=== PATIENT | female | born 1965 | race Caucasian/White ===

== ENCOUNTER 2021-04-28 09:20 | Observation (INO) | payer BC, MEDICAID, SELFPAY ==
[2021-04-28] VITALS (9 sets, daily range): BP systolic 104–134; BP diastolic 61–75; PULSE 67–98; RESP 16–22; TEMP 35.6–36.8; O2SAT 99–100; BMI 27.3
--- NOTE | ~2021-04-28 | CT_ITS ---
EXAMINATION: CT CHEST WITHOUT CONTRAST CLINICAL INFORMATION: Abnormal chest radiograph COMPARISON: Radiograph from earlier today. TECHNIQUE: Multidetector volumetric CT imaging of the chest was done. Axial MIP volume rendering provided. Sagittal and coronal reformatted images were obtained. This CT examination was performed using dose optimization techniques as appropriate, variously including the following: *Automated exposure control *Adjustment of mA and/or kV according to patient size (this includes techniques or standardized protocols for targeted exams where dose is matched to indication/reason for exam; i.e. extremities or head) *Use of iterative reconstruction technique DLP: 203 mGy-cm FINDINGS: [place] PAN TANK OPERATOR: Cardiac leads. The lungs appear otherwise unremarkable. LUNGS: The central airways are patent. Minimal dependent groundglass opacification bilaterally favoring atelectasis. No consolidation. No pneumothorax. No pulmonary nodule or mass. MEDIASTINUM: Normal heart size. No pericardial effusion. No mediastinal lymphadenopathy. The visualized thyroid gland is unremarkable. . PLEURA: There is no pleural effusion. No pleural mass or thickening. AXILLA: No lymphadenopathy. UPPER ABDOMEN: Unremarkable. OSSEOUS STRUCTURES: No acute or suspicious osseous abnormality. Degenerative changes noted in the spine. DISH. CT/CT chest wo con IMPRESSION: Minimal dependent groundglass opacification in both lower lobes favoring atelectasis. There is no consolidation.
--- NOTE | ~2021-04-28 | CT_ITS ---
EXAMINATION: CT HEAD WITHOUT CONTRAST CLINICAL INFORMATION: Fall, dizziness COMPARISON: None TECHNIQUE: Contiguous axial imaging was performed from the skull base to vertex without intravenous administration of contrast. Additional 2-D coronal and sagittal reformatted images are generated on the CT workstation and uploaded to PACS. This CT examination was performed using dose optimization techniques as appropriate, variously including the following: *Automated exposure control *Adjustment of mA and/or kV according to patient size (this includes techniques or standardized protocols for targeted exams where dose is matched to indication/reason for exam; i.e. extremities or head) *Use of iterative reconstruction technique DLP: 654 mGy-cm FINDINGS: There is no intracranial hemorrhage or hematoma. The ventricles are normal in size and contour. No hydrocephalus or subependymal resorption. There are accentuated cortical sulci bilateral frontal regions representing mild atrophy. There may also be small symmetric chronic subdural hygromas. There is no mass effect or edema or midline shift. The pitts-white matter differentiation appears normal. There is no visible acute territorial infarct or mass lesion. The calvarium appears intact. There is no pneumocephalus or orbital emphysema. The visualized sinuses and middle ears and mastoid air cells show no significant mucosal thickening. There are no air-fluid levels. CT/CT head/brain wo con IMPRESSION: 1. No acute intracranial abnormality. 2. Mild bilateral frontal atrophic changes. 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
--- NOTE | ~2021-04-28 | FL_ITS ---
EXAMINATION: XR LUMBAR PUNCTURE CLINICAL INFORMATION: Weakness and ataxia. CIDP COMPARISON: None TECHNIQUE/FINDINGS: Procedure and risks and benefits including bleeding, infection and headache were discussed with the patient through an petroleum production engineer and informed consent was obtained. Patient was positioned in the prone position. The left back was prepped and draped in the usual sterile fashion. The skin and soft tissues were anesthetized with 1% lidocaine plain. Using fluoroscopic guidance and a 22-gauge spinal needle, access to the CSF at the left L3-L4 interlaminar space was obtained. Opening pressure was 11 cm of water. 8.5 mL of clear CSF fluid was removed and sent for diagnostic studies as requested by the ordering physician. FLUOROSCOPY TIME: 0.3 minutes DOSE AREA PRODUCT: 2 Dempsey per centimeter squared. 2 saved fluoroscopic images. FL/FL guided lumbar puncture LP IMPRESSION: Fluoroscopy-guided lumbar puncture.
--- NOTE | ~2021-04-28 | MR_ITS ---
EXAMINATION: MR BRAIN WITHOUT AND WITH CONTRAST CLINICAL INFORMATION: Weakness. Ataxia. COMPARISON: CT head from 04/28/2021. TECHNIQUE: MRI of the brain was obtained using routine sequences without and following the administration of 7 mL of Gadavist intravenous contrast. FINDINGS: No focal restricted diffusion is demonstrated to suggest acute or subacute cerebral ischemia. No evidence of acute or chronic hemorrhagic products on heme-sensitive imaging. Few scattered periventricular and deep white matter T2 FLAIR hyperintensities, most commonly seen with mild underlying microangiopathy. The ventricles are normal in morphology and size. No abnormal mass effect. No midline shift. Normal appearance of the pituitary gland. Normal positioning of the cerebellar tonsils. Normal arterial and venous vascular flow voids are present. No abnormal contrast enhancement. Normal, homogeneous marrow signal. Mild mucosal thickening of the paranasal sinuses. Small right-sided mastoid effusion. No signal abnormalities within the right-sided mastoid. MR/MR head/brain wo/w con IMPRESSION: 1. No acute intracranial abnormalities. No abnormal intracranial enhancement. 2. Minimal nonspecific white matter changes. 3. Small left-sided mastoid effusion.
--- NOTE | ~2021-04-28 | XR_ITS ---
EXAMINATION: XR CHEST CLINICAL INFORMATION: Cough COMPARISON: None TECHNIQUE: Portable upright AP view of the chest was obtained. FINDINGS: There is questionable groundglass opacity right infrahilar region. The remainder of the lungs appear clear. There is no lobar or segmental airspace consolidation or effusion. The heart is normal in size and the hilar and mediastinal contours are normal. Bony structures show degenerative changes thoracic spine and bilateral shoulder rotator cuff calcific tendinosis. XR/XR chest 1V IMPRESSION: Question of small groundglass opacity right infrahilar region. Lungs otherwise clear.
--- NOTE | 2021-04-28 12:23 | ECG_ITS ---
Test Reason : DIZZINESS Blood Pressure : / mmHG Vent. Rate : 068 BPM Atrial Rate : 068 BPM P-R Int : 146 ms QRS Dur : 086 ms QT Int : 374 ms P-R-T Axes : 029 018 024 degrees QTc Int : 397 ms Poor data quality, interpretation may be adversely affected Sinus rhythm with Premature atrial complexes Low voltage QRS Abnormal ECG No previous ECGs available Referred By: Meeta Mckeon Electronically Signed By:NATHAN ARROYO
--- NOTE | 2021-04-28 12:30 | ED.DIZZY ---
HPI - Dizziness General Chief Complaint: Dizziness Stated Complaint: dizziness, fall Time Seen by Provider: 04/28/21 12:23 Source: patient History of Present Illness HPI Narrative: Patient is a 55-year-old female with a history of bipolar currently on lithium. Presented today with generalized malaise weakness frequent falls it has been ongoing for months. Patient has been followed in [place]. Had workup there which showed possibility of chronic inflammatory disease. Patient also complaining that she had of non-Hodgkin's lymphoma. For which she is placed on tamoxifen. Patient explained that she does not have breast cancer. Patient denies any fever or chills. No coughing or congestion or upper respiratory symptoms. No bloody stool. No focal weakness. No nausea no vomiting. The dizziness is somewhat of a spinning sensation that comes from time to time. Patient also has difficulty walking. Patient claims this is fairly chronic and it has been ongoing for the last month. Seems like it is getting worse. Patient is visiting from [place]. Came here about a month ago. No chest pain. No diaphoresis. No recreational drugs. No new medication. Patient has a history of bipolar and is on lithium. No history of diabetes. No history of hypertension. No history of high cholesterol. No history of smoking. Patient denies any chest pain. No leg swelling. Related Data Allergies Allergy/AdvReac Type Severity Reaction Status Date / Time No Known Allergies Allergy Verified 04/28/21 12:23 Review of Systems Review of Systems: Positive weakness Positive dizziness Positive frequent falls All systems reviewed otherwise negative PMFSH Past Medical History Attestation statement: The following information was validated with the patient. Medical History Bipolar 1 disorder Non-Hodgkin lymphoma in remission Social History Social History Alcohol intake: never Patient Tobacco Use Status: Never used Tobacco Use of substances other than those prescribed or required for medical reasons: No Advance Directives: No Advance Directives Information Provided: No Patient : No Physical Exam Vital Signs: Vital Signs: Last Vital Signs Temp 96.1 F L 04/28/21 11:05 Pulse 67 04/28/21 14:45 Resp 18 04/28/21 14:06 BP 120/66 04/28/21 14:45 Pulse Ox 100 04/28/21 13:20 Body Mass Index 27.3 Appearance: Alert. Oriented X3. No acute distress. Eyes: Pupils equal, round and reactive to light. ENT: Pharynx normal. Neck: Normal inspection. Neck supple. No lymph nodes noted. No crepitus CVS: Normal heart rate and rhythm. Pulses normal. Normal S1 and S2 Respiratory: No respiratory distress. Breath sounds normal. No Wheezing. No rales Abdomen: Soft and nontender. No rigidity. No distention. good BS x4 Skin: Skin warm and dry. Normal skin color. Normal skin turgor. Extremities: No lower extremity edema. Neurovascular intact to all extremities. No Lacerations. No Rash Neuro: Oriented X 3. No motor deficit. Cranial nerve 2-12 grossly intact. Equal strength in upper extremity equal strength in lower extremity. Able to lift up both legs against gravity for greater than 5 seconds. Sensation grossly intact. Finger-nose grossly intact. Rapid alternating movement intact. Patient's reflexes were 2+ at the knees. 2+ at the biceps. Grossly equal. Patient ambulated with a an altered gait. MDM - Dizziness MDM Narrative Medical decision making narrative: Patient's EKG showed a sinus pattern heart rate was [address] within normal limits is no acute ST segment elevation. Patient's troponin is negative. TSH is normal. Patient's CT scan of the head was grossly negative for any acute evidence of bleeding. Patient's lithium levels 1.25. Just slightly above the 1.2 normal range. Unlikely to be the cause of the problem. Patient has negative UA. No evidence for infection. Chest x-ray showed no focal infiltrate. Patient's COVID test was negative. Patient's reflexes were equal in arms and legs. Less likely to be secondary to Guillain-[place]. Will admit patient for further evaluation. Patient's case discussed with the hospitalist team. Lab Data Attestation: I reviewed the patient's lab results. Result diagrams: 04/28/21 12:56 04/28/21 12:56 Labs: Lab Results 04/28/21 04/28/21 04/28/21 Range/Units 12:55 12:55 12:55 WBC (4.8-10.8) X10*3/uL RBC (4.20-5.50) X10*6/uL Hgb (12.0-16.0) g/dl Hct (37-47) % MCV (80-98) fL MCH (27.0-33.0) pg MCHC (31.0-35.0) g/dl RDW (11.0-16.0) % Plt Count (160-400) X10*3/uL MPV (9.4-12.3) fL Immature Gran % (Auto) (0.0-0.4) % Neut % (Auto) (45-73) % Lymph % (Auto) (20-40) % [place] % (Auto) (2-11) % Eos % (Auto) (0-4) % Baso % (Auto) (0-2) % Lymph # (Auto) (1.2-4.9) X10*3/uL [place] # (Auto) (0.1-1.2) X10*3/uL Eos # (Auto) (0.0-0.4) X10*3/uL Baso # (Auto) (0.0-0.2) X10*3/uL Abs Immat Gran (auto) (0.00-0.03) X10*3/uL Absolute Neuts (auto) (2.0-8.3) X10*3/uL Absolute Nucleated RBC (0.0-0.012) X10*3/uL Nucleated RBC % (auto) (0.0-0.2) /100WBC Sodium (135-145) mmol/L Potassium (3.3-5.1) mmol/L Chloride (96-108) mmol/L Carbon Dioxide (22-29) mmol/L Anion Gap (12-20) BUN (9-16) mg/dL Creatinine (0.5-1.4) mg/dL Estim Creat Clear Calc Estimated GFR Random Glucose (60-115) mg/dL Calcium (8.4-10.2) mg/dL Magnesium (1.6-2.6) mg/dL Total Bilirubin (0.0-1.0) mg/dL Direct Bilirubin (0.0-0.5) mg/dL AST (5-31) U/L ALT (0-31) U/L Alkaline Phosphatase (39-117) U/L Troponin I High Sens < 3.5 (<3.5-17.0) ng/L Total Protein (6.5-8.0) g/dL Albumin (3.5-5.0) g/dL TSH (0.32-4.0) uIU/mL Urine Color Urine Appearance Urine pH (5.0-8.0) Ur Specific [place] (1.005-1.025) Urine Protein (NEG-TRACE) MG/DL Urine Glucose (UA) (NEG) MG/DL Urine Ketones (NEG) MG/DL Urine Blood (NEG) Urine Nitrite (NEG) Ur Leukocyte Esterase (NEG) [place] 1.25 H (0.60-1.20) mmol/L Ethyl Alcohol < 10 mg/dL COVID-19 (MARILU) (Negative) COVID-19 Clin Com 04/28/21 04/28/21 04/28/21 Range/Units 12:55 12:56 12:56 WBC 8.8 (4.8-10.8) X10*3/uL RBC 3.49 L (4.20-5.50) X10*6/uL Hgb 9.1 L (12.0-16.0) g/dl Hct 31.0 L (37-47) % MCV 88.8 (80-98) fL MCH 26.1 L (27.0-33.0) pg MCHC 29.4 L (31.0-35.0) g/dl RDW 14.6 (11.0-16.0) % Plt Count 306 (160-400) X10*3/uL MPV 11.0 (9.4-12.3) fL Immature Gran % (Auto) 0.3 (0.0-0.4) % Neut % (Auto) 72.1 (45-73) % Lymph % (Auto) 17.4 L (20-40) % [place] % (Auto) 6.5 (2-11) % Eos % (Auto) 3.4 (0-4) % Baso % (Auto) 0.3 (0-2) % Lymph # (Auto) 1.5 (1.2-4.9) X10*3/uL [place] # (Auto) 0.6 (0.1-1.2) X10*3/uL Eos # (Auto) 0.3 (0.0-0.4) X10*3/uL Baso # (Auto) 0.0 (0.0-0.2) X10*3/uL Abs Immat Gran (auto) 0.03 (0.00-0.03) X10*3/uL Absolute Neuts (auto) 6.3 (2.0-8.3) X10*3/uL Absolute Nucleated RBC 0.000 (0.0-0.012) X10*3/uL Nucleated RBC % (auto) 0.0 (0.0-0.2) /100WBC Sodium 141 (135-145) mmol/L Potassium 4.5 (3.3-5.1) mmol/L Chloride 111 H (96-108) mmol/L Carbon Dioxide 28 (22-29) mmol/L Anion Gap 7 L (12-20) BUN 15 (9-16) mg/dL Creatinine 1.09 (0.5-1.4) mg/dL Estim Creat Clear Calc 55.9 Estimated GFR 53 Random Glucose 117 H (60-115) mg/dL Calcium 9.6 9.6 (8.4-10.2) mg/dL Magnesium 1.6 (1.6-2.6) mg/dL Total Bilirubin 0.4 (0.0-1.0) mg/dL Direct Bilirubin < 0.2 (0.0-0.5) mg/dL AST 9 (5-31) U/L ALT < 6 (0-31) U/L Alkaline Phosphatase 91 (39-117) U/L Troponin I High Sens (<3.5-17.0) ng/L Total Protein 5.9 L (6.5-8.0) g/dL Albumin 3.8 (3.5-5.0) g/dL TSH 2.77 (0.32-4.0) uIU/mL Urine Color Urine Appearance Urine pH (5.0-8.0) Ur Specific [place] (1.005-1.025) Urine Protein (NEG-TRACE) MG/DL Urine Glucose (UA) (NEG) MG/DL Urine Ketones (NEG) MG/DL Urine Blood (NEG) Urine Nitrite (NEG) Ur Leukocyte Esterase (NEG) [place] (0.60-1.20) mmol/L Ethyl Alcohol mg/dL COVID-19 (MARILU) (Negative) COVID-19 Clin Com 04/28/21 04/28/21 Range/Units 14:37 14:37 WBC (4.8-10.8) X10*3/uL RBC (4.20-5.50) X10*6/uL Hgb (12.0-16.0) g/dl Hct (37-47) % MCV (80-98) fL MCH (27.0-33.0) pg MCHC (31.0-35.0) g/dl RDW (11.0-16.0) % Plt Count (160-400) X10*3/uL MPV (9.4-12.3) fL Immature Gran % (Auto) (0.0-0.4) % Neut % (Auto) (45-73) % Lymph % (Auto) (20-40) % [place] % (Auto) (2-11) % Eos % (Auto) (0-4) % Baso % (Auto) (0-2) % Lymph # (Auto) (1.2-4.9) X10*3/uL [place] # (Auto) (0.1-1.2) X10*3/uL Eos # (Auto) (0.0-0.4) X10*3/uL Baso # (Auto) (0.0-0.2) X10*3/uL Abs Immat Gran (auto) (0.00-0.03) X10*3/uL Absolute Neuts (auto) (2.0-8.3) X10*3/uL Absolute Nucleated RBC (0.0-0.012) X10*3/uL Nucleated RBC % (auto) (0.0-0.2) /100WBC Sodium (135-145) mmol/L Potassium (3.3-5.1) mmol/L Chloride (96-108) mmol/L Carbon Dioxide (22-29) mmol/L Anion Gap (12-20) BUN (9-16) mg/dL Creatinine (0.5-1.4) mg/dL Estim Creat Clear Calc Estimated GFR Random Glucose (60-115) mg/dL Calcium (8.4-10.2) mg/dL Magnesium (1.6-2.6) mg/dL Total Bilirubin (0.0-1.0) mg/dL Direct Bilirubin (0.0-0.5) mg/dL AST (5-31) U/L ALT (0-31) U/L Alkaline Phosphatase (39-117) U/L Troponin I High Sens (<3.5-17.0) ng/L Total Protein (6.5-8.0) g/dL Albumin (3.5-5.0) g/dL TSH (0.32-4.0) uIU/mL Urine Color YELLOW Urine Appearance HAZY Urine pH 6.0 (5.0-8.0) Ur Specific [place] 1.020 (1.005-1.025) Urine Protein TRACE (NEG-TRACE) MG/DL Urine Glucose (UA) NEG (NEG) MG/DL Urine Ketones NEG (NEG) MG/DL Urine Blood NEG (NEG) Urine Nitrite NEG (NEG) Ur Leukocyte Esterase TRACE H (NEG) [place] (0.60-1.20) mmol/L Ethyl Alcohol mg/dL COVID-19 (MARILU) Negative (Negative) COVID-19 Clin Com See Note Discharge Plan Discharge Clinical Impression: Dizziness Patient Disposition: Admitted As Inpatient
[2021-04-28 13:05] LABS: MANUAL DIFF FLAG NO
[2021-04-28 13:10] LABS: Basophils Percent Auto 0.3 % (0-2); Eosinophils Absolute Auto 0.3 X10*3/uL (0.0-0.4); Eosinophils Percent Auto 3.4 % (0-4); Hemoglobin 9.1 g/dl (12.0-16.0); Imm Gran Abs Auto 0.03 X10*3/uL (0.00-0.03); Imm Gran Pct Auto 0.3 % (0.0-0.4); Lymphocytes Absolute Auto 1.5 X10*3/uL (1.2-4.9); Lymphocytes Percent Auto 17.4 % (20-40); Mean Corpuscular HGB Conc 29.4 g/dl (31.0-35.0); Mean Corpuscular Hemoglobin 26.1 pg (27.0-33.0); Mean Corpuscular Volume 88.8 fL (80-98); Monocytes Absolute Auto 0.6 X10*3/uL (0.1-1.2); Monocytes Percent Auto 6.5 % (2-11); Neutrophils Absolute Auto 6.3 X10*3/uL (2.0-8.3); Neutrophils Percent Auto 72.1 % (45-73); Platelet Count 306 X10*3/uL (160-400); Red Blood Count 3.49 X10*6/uL (4.20-5.50); Red Cell Distribution Width 14.6 % (11.0-16.0); White Blood Count 8.8 X10*3/uL (4.8-10.8)
[2021-04-28 13:13] LABS: Lithium 1.25 mmol/L (0.60-1.20)
[2021-04-28 13:18] LABS: Ethanol < 10 mg/dL
[2021-04-28 13:19] LABS: Calcium 9.6 mg/dL (8.4-10.2); Magnesium 1.6 mg/dL (1.6-2.6)
[2021-04-28 13:24] LABS: Alanine Aminotransferase < 6 U/L (0-31); Albumin Level 3.8 g/dL (3.5-5.0); Alkaline Phosphatase 91 U/L (39-117); Anion Gap 7 (12-20); Aspartate Amino Transferase 9 U/L (5-31); Bilirubin Direct < 0.2 mg/dL (0.0-0.5); Bilirubin Total 0.4 mg/dL (0.0-1.0); Blood Urea Nitrogen 15 mg/dL (9-16); Calcium 9.6 mg/dL (8.4-10.2); Carbon Dioxide 28 mmol/L (22-29); Chloride 111 mmol/L (96-108); Creatinine Clr Calc Pharmacy 55.9; Estimated Glomerular Filt Rate 53; Glucose Random 117 mg/dL (60-115); Potassium 4.5 mmol/L (3.3-5.1); Sodium 141 mmol/L (135-145); Total Protein 5.9 g/dL (6.5-8.0)
[2021-04-28] MEDS: Meclizine HCl 25 MG TABLET PO (13:24)
[2021-04-28] MEDS: 0.9 % Sodium Chloride 1,000 ML 999 ML IV (13:24)
[2021-04-28 13:25] LABS: Troponin-I High Sensitivity < 3.5 ng/L (<3.5-17.0)
[2021-04-28 13:40] LABS: TSH reflex Free T4 2.77 uIU/mL (0.32-4.0)
[2021-04-28 15:09] LABS: Appearance Urine HAZY; Color Urine YELLOW; Glucose Urine UA NEG (NEG); Leukocyte Esterase Urine TRACE (NEG); Nitrite Urine NEG (NEG); UACC Culture Trigger YES; Urine Blood NEG (NEG); Urine Ketones NEG (NEG); Urine Protein TRACE MG/DL (NEG-TRACE)
[2021-04-28 15:15] LABS: COVID-19 Test Negative (Negative); IDNOW Serial# 9DD0AD1C
[2021-04-28 15:48] LABS: Bacteria Urine 1+ /LPF; RBC Urine 0 /HPF (0); Squamous Epithelial Cell Urine 3+ /LPF; WBC Urine 0-2 /HPF (0-4)
--- NOTE | 2021-04-28 16:52 | P.HPHOSP_ITS ---
History of Present Illness Date of Service: 04/28/21 <Heidi Larson NP - Last Filed: 04/28/21 17:29> Chief Complaint: Weakness <Heidi Larson NP - Last Filed: 04/28/21 17:29> 55 year old women visiting from [place] presents with weakness and falls. She reported that 2 months ago she was diagnosed with chronic inflammatory demyelinating polyneuropathy about 2 months ago. Just prior to that she had been in remission for her non hodgkins lymphoma.She was diagnosed 2 years ago and underwent chemotherapy and radiation.Over the last week she had weakness, falls and unsteady gait. She denied loss of consciousness, chest pain, shortness of breath, nausea, vomiting, diarrhea, loss of bowel or bladder function. Labs are not impressive but she does have some anemia with hemoglobin of 9.1 and hematocrit of 31.0. Chest x-ray showing some ground-glass atelectasis, chest CTA pending. Vital signs are stable. She received a dose of meclizine and 1 L of IV fluid in the ER she will be admitted to observation for falls and dizziness. <Heidi Larson NP - Last Filed: 04/28/21 17:29> Review of Systems Review of Systems: Denies any recent fever chills or decrease in appetite respiratory denies any shortness of breath coverage production cardiovascular denies chest pain gastrointestinal denies any dysphagia abdominal pain nausea vomiting or diarrhea genitourinary denies any dysuria frequency or hematuria musculoskeletal See above neuropsych see above all other systems reviewed are negative <Heidi Larson NP - Last Filed: 04/28/21 17:29> [facility] Medical History: Medical History (Updated 04/29/21 @ 12:41 by Gomez Olivier MD) Adrenal insufficiency Bipolar 1 disorder Chronic inflammatory demyelinating polyneuritis Non-Hodgkin lymphoma in remission <Heidi Larson NP - Last Filed: 04/28/21 17:29> Pertinent family history: Mother had chronic inflammatory demyelinating polyneuritis <Heidi Larson NP - Last Filed: 04/28/21 17:29> Surgical History: Surgical History H/O cardiac catheterization <NORMA Lopez Last Filed: 04/28/21 17:29> Social History: Social History Alcohol intake: never Patient Tobacco Use Status: Never used Tobacco Use of substances other than those prescribed or required for medical reasons: No Advance Directives: Yes (HCP) Advance Directives on File: Yes Advance Directives Date on File: 04/28/21 Patient : No service: No Current occupational status: employed <Heidi Larson NP - Last Filed: 04/28/21 17:29> Meds Allergies/Adverse reactions: Allergies Allergy/AdvReac Type Severity Reaction Status Date / Time No Known Allergies Allergy Verified 04/28/21 12:23 <Heidi Larson NP - Last Filed: 04/28/21 17:29> Active Medications: Current Medications Generic Name Dose Route Start Last Admin Trade Name Freq PRN Reason Stop Dose Admin Pharmacy Consult 1 each 04/28/21 14:32 Consult Rx Perform Med Rec MISCELLANE ONCE PRN Consult order <Heidi Larson NP - Last Filed: 04/28/21 17:29> Home medications: Home Medications Medication Instructions Recorded Confirmed Last Taken Type aspirin 81 mg tablet,delayed 81 mg PO DAILY 04/28/21 04/28/21 Unknown History release cyanocobalamin (vitamin B-12) 100 100 mcg PO DAILY 04/28/21 04/28/21 Unknown History mcg tablet (Vitamin B-12) insulin glargine 100 unit/mL 5 unit SUBCUT BEDTIME PRN 04/28/21 04/28/21 Unknown History subcutaneous solution (Lantus U-100 Insulin) lithium carbonate 300 mg capsule 300 mg PO BID 04/28/21 04/28/21 Unknown History lorazepam 2 mg tablet 2 mg PO BID PRN 04/28/21 04/28/21 Unknown History meclizine 25 mg tablet 25 mg PO DAILY 04/28/21 04/28/21 Unknown History metformin 1,000 mg tablet 1,000 mg PO BID 04/28/21 04/28/21 Unknown History nortriptyline 50 mg capsule 100 mg PO BEDTIME 04/28/21 04/28/21 Unknown History omeprazole 20 mg capsule,delayed 20 mg PO DAILY 04/28/21 04/28/21 Unknown History release sennosides 25 mg tablet 25 mg PO BEDTIME PRN 04/28/21 04/28/21 Unknown History simvastatin 40 mg tablet 40 mg PO BEDTIME 04/28/21 04/28/21 Unknown History temazepam 30 mg capsule 30 mg PO BEDTIME PRN 04/28/21 04/28/21 Unknown History <Heidi Larson NP - Last Filed: 04/28/21 17:29> Physical Exam Vital Signs and Narrative: Vital Signs: Last Vital Signs Temp 98.3 F 04/28/21 15:53 Pulse 84 04/28/21 15:53 Resp 20 04/28/21 15:53 BP 130/73 04/28/21 15:53 Pulse Ox 99 04/28/21 15:53 Body Mass Index 27.3 <Heidi Larson NP - Last Filed: 04/28/21 17:29> Appearing in no acute distress head is normocephalic atraumatic eyes pupils are PERRLA sclera is anicteric mouth throat mucous membranes are intact and moist neck is supple no lymphadenopathy, no JVD noted lung sounds are clear to auscultation heart regular rate rhythm, clear S1, S2 positive bowel sounds, abdomen is soft, nontender neuro patient is alert x3, no focal deficits <Heidi Larson NP - Last Filed: 04/28/21 17:29> Results Labs CBC and Chem 7: : 04/29/21 05:19 04/29/21 05:19 <Heidi Larson NP - Last Filed: 04/28/21 17:29> Labs: Laboratory Results - last 24 hr 04/28/21 04/28/21 04/28/21 12:55 12:55 12:55 MCV MCH MCHC RDW Plt Count MPV Immature Gran % (Auto) Neut % (Auto) Lymph % (Auto) [place] % (Auto) Eos % (Auto) Baso % (Auto) Lymph # (Auto) [place] # (Auto) Eos # (Auto) Baso # (Auto) Abs Immat Gran (auto) Absolute Neuts (auto) Absolute Nucleated RBC Nucleated RBC % (auto) Anion Gap Estim Creat Clear Calc Estimated GFR Random Glucose Calcium Magnesium Total Bilirubin Direct Bilirubin AST ALT Alkaline Phosphatase Troponin I High Sens < 3.5 Total Protein Albumin TSH Urine Color Urine Appearance Urine pH Ur Specific [place] Urine Protein Urine Glucose (UA) Urine Ketones Urine Blood Urine Nitrite Ur Leukocyte Esterase Urine RBC Urine WBC Ur Squamous Epith Cells Urine Bacteria [place] 1.25 H Ethyl Alcohol < 10 COVID-19 (MARILU) COVID-19 Clin Com 04/28/21 04/28/21 04/28/21 12:55 12:56 12:56 MCV 88.8 MCH 26.1 L MCHC 29.4 L RDW 14.6 Plt Count 306 MPV 11.0 Immature Gran % (Auto) 0.3 Neut % (Auto) 72.1 Lymph % (Auto) 17.4 L [place] % (Auto) 6.5 Eos % (Auto) 3.4 Baso % (Auto) 0.3 Lymph # (Auto) 1.5 [place] # (Auto) 0.6 Eos # (Auto) 0.3 Baso # (Auto) 0.0 Abs Immat Gran (auto) 0.03 Absolute Neuts (auto) 6.3 Absolute Nucleated RBC 0.000 Nucleated RBC % (auto) 0.0 Anion Gap 7 L Estim Creat Clear Calc 55.9 Estimated GFR 53 Random Glucose 117 H Calcium 9.6 9.6 Magnesium 1.6 Total Bilirubin 0.4 Direct Bilirubin < 0.2 AST 9 ALT < 6 Alkaline Phosphatase 91 Troponin I High Sens Total Protein 5.9 L Albumin 3.8 TSH 2.77 Urine Color Urine Appearance Urine pH Ur Specific [place] Urine Protein Urine Glucose (UA) Urine Ketones Urine Blood Urine Nitrite Ur Leukocyte Esterase Urine RBC Urine WBC Ur Squamous Epith Cells Urine Bacteria [place] Ethyl Alcohol COVID-19 (MARILU) COVID-19 Clin Com 04/28/21 04/28/21 14:37 14:37 MCV MCH MCHC RDW Plt Count MPV Immature Gran % (Auto) Neut % (Auto) Lymph % (Auto) [place] % (Auto) Eos % (Auto) Baso % (Auto) Lymph # (Auto) [place] # (Auto) Eos # (Auto) Baso # (Auto) Abs Immat Gran (auto) Absolute Neuts (auto) Absolute Nucleated RBC Nucleated RBC % (auto) Anion Gap Estim Creat Clear Calc Estimated GFR Random Glucose Calcium Magnesium Total Bilirubin Direct Bilirubin AST ALT Alkaline Phosphatase Troponin I High Sens Total Protein Albumin TSH Urine Color YELLOW Urine Appearance HAZY Urine pH 6.0 Ur Specific [place] 1.020 Urine Protein TRACE Urine Glucose (UA) NEG Urine Ketones NEG Urine Blood NEG Urine Nitrite NEG Ur Leukocyte Esterase TRACE H Urine RBC 0 Urine WBC 0-2 Ur Squamous Epith Cells 3+ Urine Bacteria 1+ [place] Ethyl Alcohol COVID-19 (MARILU) Negative COVID-19 Clin Com See Note <Heidi Larson NP - Last Filed: 04/28/21 17:29> Imaging Radiologist's Impressions: Impressions Chest X-Ray 04/28/21 12:23 IMPRESSION: Question of small groundglass opacity right infrahilar region. Lungs otherwise clear. Head CT 04/28/21 12:23 IMPRESSION: 1. No acute intracranial abnormality. 2. Mild bilateral frontal atrophic changes. 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 <Heidi Larson NP - Last Filed: 04/28/21 17:29> Assessment and Plan (1) Dizziness: Status: Acute <Heidi Larson NP - Last Filed: 04/28/21 17:29> 55-year-old Qatari-speaking woman admitted with weakness and falls. 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 She reported over the last couple of days she has had multiple falls and has felt general malaise. Weakness and falls . Unknown if related to diagnosis of CIDP Will obtain MRI brain with and without contrast. At some point may consider MRI of the spine for further diagnosis of CIDP Neurology consultation Fall precautions Check ESR, CRP Abnormal chest x-ray Obtain chest CT for further evaluation Diabetes mellitus Sliding scale, ADA diet Normocytic anemia Follow CBC Hyperlipidemia Continue statin Mental health [place] level mildly elevated Continue home medications <Heidi Larson NP - Last Filed: 04/28/21 17:29> 55-year-old Qatari-speaking woman admitted with weakness and falls. 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 She reported over the last couple of days she has had multiple falls and has felt general malaise. Weakness and falls . Unknown if related to diagnosis of CIDP Will obtain MRI brain with and without contrast. At some point may consider MRI of the spine for further diagnosis of CIDP Neurology consultation Fall precautions Check ESR, CRP Abnormal chest x-ray Obtain chest CT for further evaluation Diabetes mellitus Sliding scale, ADA diet Normocytic anemia Follow CBC Hyperlipidemia Continue statin Mental health [place] level mildly elevated Continue home medications Patient seen/examined, diagnostic finding, physical exam finding discussed and assessment and plan discussed with midlevel and I agree with the above. <Silverio Willis MD - Last Filed: 04/29/21 15:14> Quality Stroke Does the patient have a stroke diagnosis?: No <Heidi Larson NP - Last Filed: 04/28/21 17:29> VTE Prior VTE?: No <Heidi Larson NP - Last Filed: 04/28/21 17:29> VTE Risk Level:: Medical - moderate - high <Heidi Larson NP - Last Filed: 04/28/21 17:29> VTE Device Contraindication: Treatment Not Indicated <Heidi Larson NP - Last Filed: 04/28/21 17:29> VTE Drug Contraindication: N/A - Med Ordered <Heidi Larson NP - Last Filed: 04/28/21 17:29>
[2021-04-28 17:59] LABS: C Reactive Protein 0.04 mg/dL (< or = 0.50)
[2021-04-28 19:09] LABS: Erythrocyte Sedimentation Rate 14 MM/HR (0-20)
--- NOTE | 2021-04-28 20:50 | MHC.CM.PN ---
Addendum entered by Court Eisenberg 04/28/21 21:30: Pt lives in [place]. Addendum entered by Court Eisenberg 04/28/21 21:29: Pt is Lao speaking only. newspaper stuffer used for interview. Original Note: CM met with admitted patient, with room assignment pending. Placed to observation. Silverio reviewed and signed. Pt lives in . Visiting niece. Diagnosed with Chronic Inflammatory Demyelinating Polyneuritis. Unsteady and falls. Had MRI. Will see neurology. Pt plans to f/u with neurology specialist in [place] and then return to [place]. 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 Pt has [facility] PPO. Pt may need PCP referral if visit becomes prolonged. Has PCP in [place]. Pt is in remission from lymphoma. Pt uses no DME and has no services in [place]. Has HCP in [place]. Reviewed HCP. Pt agreeable. Will complete with brother/HCP Ramsey Barreto ([phone]) and niece/alternate Yulissa Barreto Copies given and uploaded into [employer] and [facility] [place] [employer]. D/C plan is home to niece's home. Transportation home by family. CM to follow for d/c needs.
[2021-04-28] MEDS: Enoxaparin Sodium 40 MG/0.4 ML SYRINGE SUBCUT (21:37)
[2021-04-28 21:51] LABS: Glucose, Whole Blood 133 mg/dL (60-115)
[2021-04-29] VITALS (7 sets, daily range): BP systolic 102–122; BP diastolic 57–68; PULSE 68–81; RESP 16–20; TEMP 36.3–36.4; O2SAT 98–99
[2021-04-29] MEDS: 0.9 % Sodium Chloride Flush 3 ML SYRINGE IVFLUSH ×4 (01:00→20:57)
[2021-04-29 05:51] LABS: MANUAL DIFF FLAG NO
[2021-04-29 05:53] LABS: Basophils Percent Auto 0.2 % (0-2); Eosinophils Absolute Auto 0.4 X10*3/uL (0.0-0.4); Eosinophils Percent Auto 4.4 % (0-4); Hematocrit 28.5 % (37-47); Hemoglobin 8.6 g/dl (12.0-16.0); Imm Gran Abs Auto 0.02 X10*3/uL (0.00-0.03); Imm Gran Pct Auto 0.2 % (0.0-0.4); Lymphocytes Absolute Auto 2.3 X10*3/uL (1.2-4.9); Lymphocytes Percent Auto 25.5 % (20-40); Mean Corpuscular HGB Conc 30.2 g/dl (31.0-35.0); Mean Corpuscular Hemoglobin 26.6 pg (27.0-33.0); Mean Corpuscular Volume 88.2 fL (80-98); Mean Platelet Volume 11.3 fL (9.4-12.3); Monocytes Absolute Auto 0.7 X10*3/uL (0.1-1.2); Monocytes Percent Auto 7.6 % (2-11); Neutrophils Absolute Auto 5.7 X10*3/uL (2.0-8.3); Neutrophils Percent Auto 62.1 % (45-73); Platelet Count 282 X10*3/uL (160-400); Red Blood Count 3.23 X10*6/uL (4.20-5.50); Red Cell Distribution Width 14.6 % (11.0-16.0); White Blood Count 9.1 X10*3/uL (4.8-10.8)
[2021-04-29 06:24] LABS: Anion Gap 12 (12-20); Blood Urea Nitrogen 12 mg/dL (9-16); Calcium 9.1 mg/dL (8.4-10.2); Carbon Dioxide 24 mmol/L (22-29); Chloride 112 mmol/L (96-108); Cholesterol 119 mg/dL; Creatinine Clr Calc Pharmacy 62.2; Estimated Glomerular Filt Rate 59; Glucose Random 93 mg/dL (60-115); HDL Cholesterol 44 mg/dL; LDL Cholesterol Calculated 53 mg/dl; Potassium 4.5 mmol/L (3.3-5.1); Sodium 143 mmol/L (135-145); Triglycerides 110 mg/dL
[2021-04-29] MEDS: Omeprazole 20 MG CAPSULE.DR PO (06:42)
[2021-04-29 07:55] LABS: Glucose, Whole Blood 71 mg/dL (60-115)
[2021-04-29] MEDS: Aspirin Enteric Coated 81 MG TABLET.DR PO (08:41)
[2021-04-29] MEDS: Lithium Carbonate 300 MG CAPSULE PO ×2 (08:41→20:57)
[2021-04-29] MEDS: Meclizine HCl 25 MG TABLET PO (08:41)
[2021-04-29 11:49] LABS: Glucose, Whole Blood 87 mg/dL (60-115)
--- NOTE | 2021-04-29 12:17 | P.PNIM_ITS ---
Progress Note: A&P (1) Dizziness: Status: Acute Assessment and Plan: 55-year-old Japanese-speaking woman admitted with weakness and falls.? 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 She reported over the last couple of days she has had multiple falls and has felt general malaise. She lives in [place]. Weakness and falls .? Unknown if related to diagnosis of CIDP vs neuropathy MRI brain negative for acute abnormality Neurology following Fall precautions Check ESR, CRP LP She will [place] to have further work up neurologically Diabetes mellitus Sliding scale, ADA diet Normocytic anemia Follow CBC Hyperlipidemia Continue statin Mental health [place] level mildly elevated Continue home medications Attending Dr. Reynolds Subjective Subjective Date of Service: 04/29/21 Review of Systems Follow up weakness and falls still weak, poor appetite no chest pain, sob He has some nausea and ocassional diarrhea Physical Exam Vital Signs: Vital Signs: Last Vital Signs Temp 97.5 F 04/29/21 08:00 Pulse 81 04/29/21 09:25 Resp 20 04/29/21 08:00 BP 102/57 L 04/29/21 09:25 Pulse Ox 98 04/29/21 09:25 Body Mass Index 27.3 Appearing in no acute distress lung sounds are clear to auscultation heart regular rate rhythm, clear S1, S2 positive bowel sounds, abdomen is soft, nontender neuro patient is alert x3, no focal deficits Objective Data Current Medications Generic Name Dose Route Start Last Admin Trade Name Freq PRN Reason Stop Dose Admin Acetaminophen 650 mg 04/28/21 17:30 Acetaminophen 325 Mg Tablet PO Q6H PRN Pain, Mild (Pain Scale 1-3) Aspirin 81 mg 04/29/21 09:00 04/29/21 08:41 Aspirin Enteric Coated 81 Mg Tablet. PO 81 mg DAILY AURE Administration Atorvastatin Calcium 20 mg 04/28/21 21:00 04/28/21 22:25 Atorvastatin Calcium 20 Mg Tablet PO Not Given BEDTIME AURE Cyanocobalamin 100 mcg 04/29/21 09:00 04/29/21 08:41 Cyanocobalamin (Vitamin B-12) 100 Mcg Tablet PO Not Given DAILY AURE Dextrose 25 gm 04/28/21 17:29 Dextrose 50 % 25 Gm/50 Ml Vial IVPUSH Q15M PRN per Hypoglycemia Standing Ord. Protocol Enoxaparin Sodium 40 mg 04/28/21 20:00 04/28/21 21:37 Enoxaparin Sodium 40 Mg/0.4 Ml Syringe SUBCUT 40 mg Q24H AURE Administration Glucose 15 gm 04/28/21 17:29 Glucose Gel 15 Gm Gel..Gram. PO Q15M PRN per Hypoglycemia Standing Ord. Protocol Insulin Glargine 5 unit 04/28/21 17:40 Insulin Glargine,Hum.Rec.Anlog 100 Unit/Ml 10 Ml Vial SUBCUT BEDTIME PRN Hyperglycemia Insulin Human Lispro 0 unit 04/28/21 21:00 04/29/21 08:32 Insulin Lispro 100 Unit/Ml 3 Ml Vial SUBCUT Not Given QIDACHS [facility] Protocol [place] Carbonate 300 mg 04/28/21 21:00 04/29/21 08:41 [place] Carbonate 300 Mg Capsule PO 300 mg BID AURE Administration Lorazepam 2 mg 04/28/21 17:33 Lorazepam 1 Mg Tablet PO BID PRN Anxiety Meclizine HCl 25 mg 04/29/21 09:00 04/29/21 08:41 Meclizine Hcl 25 Mg Tablet PO 25 mg DAILY AURE Administration Nortriptyline HCl 100 mg 04/28/21 21:00 04/28/21 22:16 Nortriptyline Hcl 25 Mg Capsule PO Not Given BEDTIME AURE Omeprazole 20 mg 04/29/21 06:30 04/29/21 06:42 Omeprazole 20 Mg Capsule.Dr PO 20 mg DAILY@0630 AURE Administration Ondansetron HCl 4 mg 04/28/21 17:30 Ondansetron Hcl 4 Mg/2 Ml Vial IVPUSH Q8H PRN Nausea and Vomiting Pharmacy Consult 1 each 04/28/21 14:32 Consult Rx Perform Med Rec MISCELLANE ONCE PRN Consult order Senna 17.2 mg 04/28/21 17:44 Sennosides 8.6 Mg Tablet PO BEDTIME PRN Constipation Sodium Chloride 3 ml 04/29/21 00:00 04/29/21 08:41 0.9 % Sodium Chloride Flush 3 Ml Syringe IVFLUSH 3 ml QSHIFT AURE Administration Temazepam 30 mg 04/28/21 17:39 Temazepam 15 Mg Capsule PO BEDTIME PRN Insomnia Labs CBC & Chem 7: 04/29/21 05:19 04/29/21 05:19 Labs: Laboratory Results - last 24 hr 04/28/21 04/28/21 04/28/21 12:55 12:55 12:55 MCV MCH MCHC RDW Plt Count MPV Immature Gran % (Auto) Neut % (Auto) Lymph % (Auto) [place] % (Auto) Eos % (Auto) Baso % (Auto) Lymph # (Auto) [place] # (Auto) Eos # (Auto) Baso # (Auto) Abs Immat Gran (auto) Absolute Neuts (auto) Absolute Nucleated RBC Nucleated RBC % (auto) ESR Anion Gap Estim Creat Clear Calc Estimated GFR POC Glucose Random Glucose Calcium Magnesium Total Bilirubin Direct Bilirubin AST ALT Alkaline Phosphatase Troponin I High Sens < 3.5 C-Reactive Protein Total Protein Albumin Triglycerides Cholesterol LDL Cholesterol, Calc HDL Cholesterol TSH Urine Color Urine Appearance Urine pH Ur Specific [place] Urine Protein Urine Glucose (UA) Urine Ketones Urine Blood Urine Nitrite Ur Leukocyte Esterase Urine RBC Urine WBC Ur Squamous Epith Cells Urine Bacteria [place] 1.25 H Ethyl Alcohol < 10 COVID-19 (MARILU) COVID-19 Clin Com 04/28/21 04/28/21 04/28/21 12:55 12:56 12:56 MCV 88.8 MCH 26.1 L MCHC 29.4 L RDW 14.6 Plt Count 306 MPV 11.0 Immature Gran % (Auto) 0.3 Neut % (Auto) 72.1 Lymph % (Auto) 17.4 L [place] % (Auto) 6.5 Eos % (Auto) 3.4 Baso % (Auto) 0.3 Lymph # (Auto) 1.5 [place] # (Auto) 0.6 Eos # (Auto) 0.3 Baso # (Auto) 0.0 Abs Immat Gran (auto) 0.03 Absolute Neuts (auto) 6.3 Absolute Nucleated RBC 0.000 Nucleated RBC % (auto) 0.0 ESR Anion Gap 7 L Estim Creat Clear Calc 55.9 Estimated GFR 53 POC Glucose Random Glucose 117 H Calcium 9.6 9.6 Magnesium 1.6 Total Bilirubin 0.4 Direct Bilirubin < 0.2 AST 9 ALT < 6 Alkaline Phosphatase 91 Troponin I High Sens C-Reactive Protein 0.04 Total Protein 5.9 L Albumin 3.8 Triglycerides Cholesterol LDL Cholesterol, Calc HDL Cholesterol TSH 2.77 Urine Color Urine Appearance Urine pH Ur Specific [place] Urine Protein Urine Glucose (UA) Urine Ketones Urine Blood Urine Nitrite Ur Leukocyte Esterase Urine RBC Urine WBC Ur Squamous Epith Cells Urine Bacteria [place] Ethyl Alcohol COVID-19 (MARILU) COVID-19 Clin Com 04/28/21 04/28/21 04/28/21 12:56 14:37 14:37 MCV MCH MCHC RDW Plt Count MPV Immature Gran % (Auto) Neut % (Auto) Lymph % (Auto) [place] % (Auto) Eos % (Auto) Baso % (Auto) Lymph # (Auto) [place] # (Auto) Eos # (Auto) Baso # (Auto) Abs Immat Gran (auto) Absolute Neuts (auto) Absolute Nucleated RBC Nucleated RBC % (auto) ESR 14 Anion Gap Estim Creat Clear Calc Estimated GFR POC Glucose Random Glucose Calcium Magnesium Total Bilirubin Direct Bilirubin AST ALT Alkaline Phosphatase Troponin I High Sens C-Reactive Protein Total Protein Albumin Triglycerides Cholesterol LDL Cholesterol, Calc HDL Cholesterol TSH Urine Color YELLOW Urine Appearance HAZY Urine pH 6.0 Ur Specific [place] 1.020 Urine Protein TRACE Urine Glucose (UA) NEG Urine Ketones NEG Urine Blood NEG Urine Nitrite NEG Ur Leukocyte Esterase TRACE H Urine RBC 0 Urine WBC 0-2 Ur Squamous Epith Cells 3+ Urine Bacteria 1+ [place] Ethyl Alcohol COVID-19 (MARILU) Negative COVID-19 Modernizing [facility] Com See Note 04/28/21 04/29/21 04/29/21 21:36 05:19 05:19 MCV 88.2 MCH 26.6 L MCHC 30.2 L RDW 14.6 Plt Count 282 MPV 11.3 Immature Gran % (Auto) 0.2 Neut % (Auto) 62.1 Lymph % (Auto) 25.5 [place] % (Auto) 7.6 Eos % (Auto) 4.4 H Baso % (Auto) 0.2 Lymph # (Auto) 2.3 [place] # (Auto) 0.7 Eos # (Auto) 0.4 Baso # (Auto) 0.0 Abs Immat Gran (auto) 0.02 Absolute Neuts (auto) 5.7 Absolute Nucleated RBC 0.000 Nucleated RBC % (auto) 0.0 ESR Anion Gap 12 Estim Creat Clear Calc 62.2 Estimated GFR 59 POC Glucose 133 H Random Glucose 93 Calcium 9.1 Magnesium Total Bilirubin Direct Bilirubin AST ALT Alkaline Phosphatase Troponin I High Sens C-Reactive Protein Total Protein Albumin Triglycerides 110 Cholesterol 119 LDL Cholesterol, Calc 53 HDL Cholesterol 44 TSH Urine Color Urine Appearance Urine pH Ur Specific [place] Urine Protein Urine Glucose (UA) Urine Ketones Urine Blood Urine Nitrite Ur Leukocyte Esterase Urine RBC Urine WBC Ur Squamous Epith Cells Urine Bacteria [place] Ethyl Alcohol COVID-19 (MARILU) COVID-19 Clin Com 04/29/21 04/29/21 07:33 11:35 MCV MCH MCHC RDW Plt Count MPV Immature Gran % (Auto) Neut % (Auto) Lymph % (Auto) [place] % (Auto) Eos % (Auto) Baso % (Auto) Lymph # (Auto) [place] # (Auto) Eos # (Auto) Baso # (Auto) Abs Immat Gran (auto) Absolute Neuts (auto) Absolute Nucleated RBC Nucleated RBC % (auto) ESR Anion Gap Estim Creat Clear Calc Estimated GFR POC Glucose 71 87 Random Glucose Calcium Magnesium Total Bilirubin Direct Bilirubin AST ALT Alkaline Phosphatase Troponin I High Sens C-Reactive Protein Total Protein Albumin Triglycerides Cholesterol LDL Cholesterol, Calc HDL Cholesterol TSH Urine Color Urine Appearance Urine pH Ur Specific [place] Urine Protein Urine Glucose (UA) Urine Ketones Urine Blood Urine Nitrite Ur Leukocyte Esterase Urine RBC Urine WBC Ur Squamous Epith Cells Urine Bacteria [place] Ethyl Alcohol COVID-19 (MARILU) COVID-19 Clin Com Quality Stroke Does the patient have a stroke diagnosis?: No VTE Prior VTE?: No VTE Risk Level:: Medical - moderate - high VTE Device Contraindication: Treatment Not Indicated VTE Drug Contraindication: N/A - Med Ordered
--- NOTE | 2021-04-29 12:38 | PM.NEUROCN ---
History of Present Illness Data of Consult Service Date: 04/29/21 Primary Care Provider: Unknown Physician HPI Reason for consult: Difficulty walking 55 years old woman originally from [place] who came here few days ago. She said that she had previous history of diabetes and she was fine with control diabetes until about 3-4 months ago when she developed difficulty walking and falling. She saw some physicians in [place] but no definitive diagnosis was made but it was suggested that she might have CIDP. She did not have any particular testing for that. She came here and was noted to be falling and unsteady and was brought to hospital. There was no loss of bowel bladder function. There was no speech or language difficulty or upper extremity symptoms. Review of Systems Review of Systems: No cold or flu-like symptom now or around the time when her symptoms started. [facility] Past Medical History Medical History (Updated 04/29/21 @ 12:41 by Gomez Olivier MD) Adrenal insufficiency Bipolar 1 disorder Chronic inflammatory demyelinating polyneuritis Non-Hodgkin lymphoma in remission Surgical History Surgical History H/O cardiac catheterization Social History Social History Alcohol intake: never Patient Tobacco Use Status: Never used Tobacco Use of substances other than those prescribed or required for medical reasons: No Advance Directives: Yes (HCP) Advance Directives on File: Yes Advance Directives Date on File: 04/28/21 Patient : No service: No Current occupational status: employed Meds Allergies Allergy/AdvReac Type Severity Reaction Status Date / Time No Known Allergies Allergy Verified 04/28/21 12:23 Active Medications: Current Medications Generic Name Dose Route Start Last Admin Trade Name Freq PRN Reason Stop Dose Admin Acetaminophen 650 mg 04/28/21 17:30 Acetaminophen 325 Mg Tablet PO Q6H PRN Pain, Mild (Pain Scale 1-3) Aspirin 81 mg 04/29/21 09:00 04/29/21 08:41 Aspirin Enteric Coated 81 Mg Tablet. PO 81 mg DAILY AURE Administration Atorvastatin Calcium 20 mg 04/28/21 21:00 04/28/21 22:25 Atorvastatin Calcium 20 Mg Tablet PO Not Given BEDTIME [facility] Cyanocobalamin 100 mcg 04/29/21 09:00 04/29/21 08:41 Cyanocobalamin (Vitamin B-12) 100 Mcg Tablet PO Not Given DAILY AURE Dextrose 25 gm 04/28/21 17:29 Dextrose 50 % 25 Gm/50 Ml Vial IVPUSH Q15M PRN per Hypoglycemia Standing Ord. Protocol Enoxaparin Sodium 40 mg 04/28/21 20:00 04/28/21 21:37 Enoxaparin Sodium 40 Mg/0.4 Ml Syringe SUBCUT 40 mg Q24H AURE Administration Glucose 15 gm 04/28/21 17:29 Glucose Gel 15 Gm Gel..Gram. PO Q15M PRN per Hypoglycemia Standing Ord. Protocol Insulin Glargine 5 unit 04/28/21 17:40 Insulin Glargine,Hum.Rec.Anlog 100 Unit/Ml 10 Ml Vial SUBCUT BEDTIME PRN Hyperglycemia Insulin Human Lispro 0 unit 04/28/21 21:00 04/29/21 08:32 Insulin Lispro 100 Unit/Ml 3 Ml Vial SUBCUT Not Given QIDACHS [facility] Protocol [place] Carbonate 300 mg 04/28/21 21:00 04/29/21 08:41 [place] Carbonate 300 Mg Capsule PO 300 mg BID AURE Administration Lorazepam 2 mg 04/28/21 17:33 Lorazepam 1 Mg Tablet PO BID PRN Anxiety Meclizine HCl 25 mg 04/29/21 09:00 04/29/21 08:41 Meclizine Hcl 25 Mg Tablet PO 25 mg DAILY AURE Administration Nortriptyline HCl 100 mg 04/28/21 21:00 04/28/21 22:16 Nortriptyline Hcl 25 Mg Capsule PO Not Given BEDTIME AURE Omeprazole 20 mg 04/29/21 06:30 04/29/21 06:42 Omeprazole 20 Mg Capsule.Dr PO 20 mg DAILY@0630 AURE Administration Ondansetron HCl 4 mg 04/28/21 17:30 Ondansetron Hcl 4 Mg/2 Ml Vial IVPUSH Q8H PRN Nausea and Vomiting Pharmacy Consult 1 each 04/28/21 14:32 Consult Rx Perform Med Rec MISCELLANE ONCE PRN Consult order Senna 17.2 mg 04/28/21 17:44 Sennosides 8.6 Mg Tablet PO BEDTIME PRN Constipation Sodium Chloride 3 ml 04/29/21 00:00 04/29/21 08:41 0.9 % Sodium Chloride Flush 3 Ml Syringe IVFLUSH 3 ml QSHIFT AURE Administration Temazepam 30 mg 04/28/21 17:39 Temazepam 15 Mg Capsule PO BEDTIME PRN Insomnia Home Medications Medication Instructions Recorded Confirmed Last Taken Type aspirin 81 mg tablet,delayed 81 mg PO DAILY 04/28/21 04/28/21 Unknown History release cyanocobalamin (vitamin B-12) 100 100 mcg PO DAILY 04/28/21 04/28/21 Unknown History mcg tablet (Vitamin B-12) insulin glargine 100 unit/mL 5 unit SUBCUT BEDTIME PRN 04/28/21 04/28/21 Unknown History subcutaneous solution (Lantus U-100 Insulin) lithium carbonate 300 mg capsule 300 mg PO BID 04/28/21 04/28/21 Unknown History lorazepam 2 mg tablet 2 mg PO BID PRN 04/28/21 04/28/21 Unknown History meclizine 25 mg tablet 25 mg PO DAILY 04/28/21 04/28/21 Unknown History metformin 1,000 mg tablet 1,000 mg PO BID 04/28/21 04/28/21 Unknown History nortriptyline 50 mg capsule 100 mg PO BEDTIME 04/28/21 04/28/21 Unknown History omeprazole 20 mg capsule,delayed 20 mg PO DAILY 04/28/21 04/28/21 Unknown History release sennosides 25 mg tablet 25 mg PO BEDTIME PRN 04/28/21 04/28/21 Unknown History simvastatin 40 mg tablet 40 mg PO BEDTIME 04/28/21 04/28/21 Unknown History temazepam 30 mg capsule 30 mg PO BEDTIME PRN 04/28/21 04/28/21 Unknown History Physical Exam Vital Signs: Vital Signs: Last Vital Signs Temp 97.5 F 04/29/21 08:00 Pulse 81 04/29/21 09:25 Resp 20 04/29/21 08:00 BP 102/57 L 04/29/21 09:25 Pulse Ox 98 04/29/21 09:25 Body Mass Index 27.3 Neuro: Other: Moderate diffuse muscle atrophy in legs with shiny discoloration. Deep tendon reflexes were absent with flexor plantars. She was able to get up from flat position but with help of 2 people. She took some small steps with help and holding on to hands. [place] was slightly positive. Upper extremity reflexes were absent. Face was symmetrical. Pupils were round reactive to light. She was alert awake oriented with normal speech language and affect. Results Labs CBC & Chem 7: 04/29/21 05:19 04/29/21 05:19 Labs: Short CBC 04/28/21 04/29/21 Range/Units 12:56 05:19 WBC 8.8 9.1 (4.8-10.8) X10*3/uL Hgb 9.1 L 8.6 L (12.0-16.0) g/dl Hct 31.0 L 28.5 L (37-47) % Plt Count 306 282 (160-400) X10*3/uL BMP 04/28/21 04/28/21 04/29/21 12:55 12:56 05:19 Sodium 141 143 Potassium 4.5 4.5 Chloride 111 H 112 H Carbon Dioxide 28 24 BUN 15 12 Creatinine 1.09 0.98 Calcium 9.6 9.6 9.1 Liver Function 04/28/21 Range/Units 12:56 Total Bilirubin 0.4 (0.0-1.0) mg/dL Direct Bilirubin < 0.2 (0.0-0.5) mg/dL AST 9 (5-31) U/L ALT < 6 (0-31) U/L Alkaline Phosphatase 91 (39-117) U/L Albumin 3.8 (3.5-5.0) g/dL Urine 04/28/21 Range/Units 14:37 Urine Color YELLOW Urine Appearance HAZY Urine pH 6.0 (5.0-8.0) Ur Specific [place] 1.020 (1.005-1.025) Urine Protein TRACE (NEG-TRACE) MG/DL Urine Glucose (UA) NEG (NEG) MG/DL Her MRI of brain did not reveal any significant abnormality. Assessment and Plan (1) Chronic peripheral neuropathic pain: Status: Acute 55 years old woman with underlying history of diabetes developed further weakness of legs and unsteadiness few months ago. Her examination revealed signs of chronic peripheral neuropathy and associated unsteadiness. This could be an additional formal nerve neuropathy on top of diabetic. CIDP was a possibility. I would recommend checking her for Lyme and syphilis and performing a lumbar puncture to check her CSF protein and other routine CSF tests. After that, she could see me and further testing can be done as an outpatient. Procedures Date of Service Date of Service: 04/29/21
--- NOTE | 2021-04-29 12:48 | MHC.CM.PN ---
PER REQUEST OF ELAINE REID, [facility] CONTACTED VIA FAX @ [phone]. NIECE STATES THAT PATIENT WILL NOT BE RETURNING TO [place], AND WILL BE STAYING WITH HER. FACE SHEET AND CONTACT INFO FOR FAMILY PROVIDED
[2021-04-29 14:09] LABS: INTERNATIONAL NORM RATIO 1.2 (0.9-1.1); Prothrombin Time 13.1 SEC (9.9-13.0)
--- NOTE | 2021-04-29 16:15 | HO.RADPN ---
RADIOLOGY Narrative Narrative: LP performed using 22g spinal needle. Opening pressure 11 cm h20. 6.5 mL clear CSF removed.
[2021-04-29] MEDS: Lidocaine HCl 1 % 20 ML VIAL 5 ML SUBCUT (16:27)
[2021-04-29 17:11] LABS: Glucose, Whole Blood 67 mg/dL (60-115)
[2021-04-29] MEDS: Glucose Gel 15 GM GEL..GRAM. PO (17:11)
[2021-04-29 17:32] LABS: Appearance CSF CLEAR; CSF Monos 20 %; CSF Other Cells % 10 %; CSF Tube # 4; Color CSF COLORLESS; Lymphocytes CSF 70 %; Red Blood Cell CSF 0 MM*3; White Blood Cell CSF 3 MM*3
[2021-04-29 17:53] LABS: Glucose CSF 65 mg/dL; Total Protein CSF 56.3 mg/dL (15-45)
[2021-04-29 20:53] LABS: Glucose, Whole Blood 216 mg/dL (60-115)
[2021-04-29] MEDS: Insulin Lispro 100 UNIT/ML 3 ML VIAL SUBCUT (20:56)
[2021-04-29] MEDS: Enoxaparin Sodium 40 MG/0.4 ML SYRINGE SUBCUT (20:56)
[2021-04-29] MEDS: Nortriptyline HCl 25 MG CAPSULE 100 MG PO (20:56)
[2021-04-29] MEDS: Atorvastatin Calcium 20 MG TABLET PO (20:57)
[2021-04-29 23:19] LABS: CSF Appearance Clear, Colorless; CSF Tube # 2
[2021-04-30] VITALS (8 sets, daily range): BP systolic 111–124; BP diastolic 57–72; PULSE 73–89; RESP 18–20; TEMP 36.1–36.7; O2SAT 98–100
[2021-04-30 00:45] LABS: Glucose, Whole Blood 94 mg/dL (60-115)
[2021-04-30] MEDS: Omeprazole 20 MG CAPSULE.DR PO (05:37)
[2021-04-30 06:11] LABS: Hematocrit 29.9 % (37-47); Mean Corpuscular HGB Conc 30.1 g/dl (31.0-35.0); Mean Corpuscular Hemoglobin 26.8 pg (27.0-33.0); Mean Platelet Volume 11.1 fL (9.4-12.3); Platelet Count 291 X10*3/uL (160-400); Red Blood Count 3.36 X10*6/uL (4.20-5.50); Red Cell Distribution Width 14.6 % (11.0-16.0)
[2021-04-30 06:36] LABS: Anion Gap 7 (12-20); Blood Urea Nitrogen 15 mg/dL (9-16); Calcium 9.2 mg/dL (8.4-10.2); Carbon Dioxide 29 mmol/L (22-29); Chloride 110 mmol/L (96-108); Creatinine Clr Calc Pharmacy 46.9; Estimated Glomerular Filt Rate 43; Glucose Random 158 mg/dL (60-115); Potassium 4.1 mmol/L (3.3-5.1); Sodium 142 mmol/L (135-145)
[2021-04-30 07:57] LABS: Glucose, Whole Blood 124 mg/dL (60-115)
[2021-04-30] MEDS: 0.9 % Sodium Chloride Flush 3 ML SYRINGE IVFLUSH ×2 (08:28→20:50)
[2021-04-30] MEDS: Meclizine HCl 25 MG TABLET PO (08:28)
[2021-04-30] MEDS: Aspirin Enteric Coated 81 MG TABLET.DR PO (08:28)
[2021-04-30] MEDS: Lithium Carbonate 300 MG CAPSULE PO ×2 (08:28→20:49)
[2021-04-30] MEDS: Cyanocobalamin (Vitamin B-12) 100 MCG TABLET PO (08:28)
[2021-04-30 11:07] LABS: Thyroid Stimulating Hormone 2.25 uIU/mL (0.32-4.0)
[2021-04-30 11:50] LABS: Glucose, Whole Blood 123 mg/dL (60-115)
--- NOTE | 2021-04-30 13:05 | MHC.CM.PN ---
CM MET W/PT AND DTR D/T PT RECOMMENDING ACUTE REHAB AND SUE DECLINING D/T PT NOT MEETING CRITERIA, DTR GIVEN PRINT OUT OF SNF CHOICES TO REVIEW AND GIVE LIST OF TOP 3 PREFERNCES, CM WILL CHECK IN W/FAMILY SHORTLY.
--- NOTE | 2021-04-30 15:53 | P.PNIM_ITS ---
Subjective Subjective Date of Service: 04/30/21 Interval History: Seen and examined this morning Follow-up for falls, weakness, neuropathy. No specific complaints this morning Review of Systems Review of Systems: Yes all other systems are reviewed and are negative Constitutional Constitutional: Denies chills and Denies fever(s) Cardiovascular Cardiovascular: Denies chest pain Respiratory Respiratory: Denies cough Gastrointestinal Gastrointestinal: Denies abdominal pain Physical Exam Vital Signs: Vital Signs: Last Vital Signs Temp 97.0 F 04/30/21 12:00 Pulse 73 04/30/21 12:00 Resp 19 04/30/21 12:00 BP 112/64 04/30/21 12:00 Pulse Ox 98 04/30/21 12:00 Body Mass Index 27.3 Const: Nutritional Appearance: well nourished Orientation/consciousness: patient oriented x3 HENMT: Head: Yes normocephalic and Yes atraumatic Eyes: Sclerae: sclerae normal Resp: Effort & Inspection: normal respiratory effort and no respiratory distress Cardio: Rate: regular rate Rhythm: regular rhythm GI: Palpation (GI): Soft to palpation and nontender Neuro: General: patient oriented x3 Cranial nerves: Yes CN's II-XII intact bilaterally and Yes Bilaterally intact EOM present Objective Data Active Medications Acetaminophen (Acetaminophen 325 Mg Tablet) 650 mg PO Q6H PRN PRN Reason: Pain, Mild (Pain Scale 1-3) Aspirin (Aspirin Enteric Coated 81 Mg Tablet.) 81 mg PO DAILY COUNTS INCLUDE 234 BEDS AT THE [facility] Last Admin: 04/30/21 08:28 Dose: 81 mg Documented by: ALIE Atorvastatin Calcium (Atorvastatin Calcium 20 Mg Tablet) 20 mg PO BEDTIME COUNTS INCLUDE 234 BEDS AT THE [facility] Last Admin: 04/29/21 20:57 Dose: 20 mg Documented by: RAULITO Cyanocobalamin (Cyanocobalamin (Vitamin B-12) 100 Mcg Tablet) 100 mcg PO DAILY COUNTS INCLUDE 234 BEDS AT THE [facility] Last Admin: 04/30/21 08:28 Dose: 100 mcg Documented by: ALIE Dextrose (Dextrose 50 % 25 Gm/50 Ml Vial) 25 gm IVPUSH Q15M PRN; Protocol PRN Reason: per Hypoglycemia Standing Ord. Enoxaparin Sodium (Enoxaparin Sodium 40 Mg/0.4 Ml Syringe) 40 mg SUBCUT Q24H COUNTS INCLUDE 234 BEDS AT THE [facility] Last Admin: 04/29/21 20:56 Dose: 40 mg Documented by: RAULITO Glucose (Glucose Gel 15 Gm Gel..Gram.) 15 gm PO Q15M PRN; Protocol PRN Reason: per Hypoglycemia Standing Ord. Last Admin: 04/29/21 17:11 Dose: 15 gm Documented by: ALIE Insulin Glargine (Insulin Glargine,Hum.Rec.Anlog 100 Unit/Ml 10 Ml Vial) 5 unit SUBCUT BEDTIME PRN PRN Reason: Hyperglycemia Insulin Human Lispro (Insulin Lispro 100 Unit/Ml 3 Ml Vial) 0 unit SUBCUT QIDACHS COUNTS INCLUDE 234 BEDS AT THE [facility]; Protocol Last Admin: 04/30/21 11:55 Dose: Not Given Documented by: ALIE Non-Admin Reason: No Insulin Coverage [place] Carbonate ([place] Carbonate 300 Mg Capsule) 300 mg PO BID COUNTS INCLUDE 234 BEDS AT THE [facility] Last Admin: 04/30/21 08:28 Dose: 300 mg Documented by: ALIE Lorazepam (Lorazepam 1 Mg Tablet) 2 mg PO BID PRN PRN Reason: Anxiety Meclizine HCl (Meclizine Hcl 25 Mg Tablet) 25 mg PO DAILY COUNTS INCLUDE 234 BEDS AT THE [facility] Last Admin: 04/30/21 08:28 Dose: 25 mg Documented by: ALIE Nortriptyline HCl (Nortriptyline Hcl 25 Mg Capsule) 100 mg PO BEDTIME COUNTS INCLUDE 234 BEDS AT THE [facility] Last Admin: 04/29/21 20:56 Dose: 100 mg Documented by: RAULITO Omeprazole (Omeprazole 20 Mg Capsule.Dr) 20 mg PO DAILY@0630 COUNTS INCLUDE 234 BEDS AT THE [facility] Last Admin: 04/30/21 05:37 Dose: 20 mg Documented by: RAULITO Ondansetron HCl (Ondansetron Hcl 4 Mg/2 Ml Vial) 4 mg IVPUSH Q8H PRN PRN Reason: Nausea and Vomiting Pharmacy Consult (Consult Rx Perform Med Rec) 1 each MISCELLANE ONCE PRN PRN Reason: Consult order Senna (Sennosides 8.6 Mg Tablet) 17.2 mg PO BEDTIME PRN PRN Reason: Constipation Sodium Chloride (0.9 % Sodium Chloride Flush 3 Ml Syringe) [facility] Last Admin: 04/30/21 08:28 Dose: 3 ml Documented by: ALIE Temazepam (Temazepam 15 Mg Capsule) 30 mg PO BEDTIME PRN PRN Reason: Insomnia Labs CBC & Chem 7: 04/30/21 05:45 04/30/21 05:45 Labs: Laboratory Results - last 24 hr 04/29/21 04/29/21 04/29/21 15:57 15:57 16:59 MCV MCH MCHC RDW Plt Count MPV Absolute Nucleated RBC Nucleated RBC % (auto) Anion Gap Estim Creat Clear Calc Estimated GFR POC Glucose 67 Random Glucose Calcium TSH CSF Tube Number 2 4 CSF Volume 2.0 CSF Appearance CLEAR CSF Color COLORLESS CSF WBC 3 CSF RBC 0 CSF Lymphocytes 70 CSF Monocytes % 20 CSF Other Cells % 10 CSF Appearance (b) Clear, Colorless CSF Glucose 65 CSF Total Protein 56.3 H 04/29/21 04/29/21 04/30/21 17:43 20:48 05:45 MCV 89.0 MCH 26.8 L MCHC 30.1 L RDW 14.6 Plt Count 291 MPV 11.1 Absolute Nucleated RBC 0.000 Nucleated RBC % (auto) 0.0 Anion Gap Estim Creat Clear Calc Estimated GFR POC Glucose 94 216 H Random Glucose Calcium TSH CSF Tube Number CSF Volume CSF Appearance CSF Color CSF WBC CSF RBC CSF Lymphocytes CSF Monocytes % CSF Other Cells % CSF Appearance (b) CSF Glucose CSF Total Protein 04/30/21 04/30/21 04/30/21 05:45 07:39 11:44 MCV MCH MCHC RDW Plt Count MPV Absolute Nucleated RBC Nucleated RBC % (auto) Anion Gap 7 L Estim Creat Clear Calc 46.9 Estimated GFR 43 POC Glucose 124 H 123 H Random Glucose 158 H Calcium 9.2 TSH 2.25 CSF Tube Number CSF Volume CSF Appearance CSF Color CSF WBC CSF RBC CSF Lymphocytes CSF Monocytes % CSF Other Cells % CSF Appearance (b) CSF Glucose CSF Total Protein Microbiology Microbiology Results: Microbiology 04/28/21 15:14 Urine Culture - Final Urine clean catch - Urine pitts top 04/29/21 Unknown Gram Stain - Final Cerebrospinal Fluid CSF Examination - Final Fluid Description - Final CSF Culture - Preliminary No growth after 1 day Assessment and Plan (1) Neuropathy: Status: Acute Assessment and Plan: 55-year-old [place]ian-speaking woman admitted with weakness and falls. 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 She reported over the last couple of days she has had multiple falls and has felt general malaise. Weakness and falls, recent diagnosis of CIDP made in [place] Brain MRI no acute intracranial abnormality, minimal nonspecific white matter changes s/p LP protein 56.3, otherwise unremarkable Seen by Neurology, outpatient follow-up in clinic Lyme, syphilis pending Abnormal chest x-ray Chest CT showing atelectasis, no further workup indicated Diabetes mellitus Sliding scale, ADA diet Normocytic anemia Follow CBC Hyperlipidemia Continue statin Mental health [place] level mildly elevated Continue home medications Seen by PT, recommended acute rehab. Awaiting insurance authorization dvt ppx - Lovenox Attending physician-Dr. Reynolds Quality Stroke Does the patient have a stroke diagnosis?: No VTE Prior VTE?: No VTE Risk Level:: Medical - moderate - high VTE Device Contraindication: Treatment Not Indicated VTE Drug Contraindication: N/A - Med Ordered
[2021-04-30 17:35] LABS: Glucose, Whole Blood 142 mg/dL (60-115)
[2021-04-30] MEDS: Nortriptyline HCl 25 MG CAPSULE 100 MG PO (20:49)
[2021-04-30] MEDS: Atorvastatin Calcium 20 MG TABLET PO (20:50)
[2021-04-30] MEDS: Enoxaparin Sodium 40 MG/0.4 ML SYRINGE SUBCUT (20:50)
[2021-04-30 20:53] LABS: Glucose, Whole Blood 105 mg/dL (60-115)
[2021-05-01] MEDS: 0.9 % Sodium Chloride Flush 3 ML SYRINGE IVFLUSH ×2 (00:42→08:39)
[2021-05-01 04:00] VITALS: BP 119/69; PULSE 80; RESP 18; TEMP 35.8; O2SAT 100
[2021-05-01] MEDS: Omeprazole 20 MG CAPSULE.DR PO (06:14)
[2021-05-01 07:18] VITALS: BP 128/68; PULSE 86; RESP 18; TEMP 36.6; O2SAT 99
[2021-05-01 07:35] LABS: Glucose, Whole Blood 99 mg/dL (60-115)
[2021-05-01] MEDS: Cyanocobalamin (Vitamin B-12) 100 MCG TABLET PO (08:38)
[2021-05-01] MEDS: Lithium Carbonate 300 MG CAPSULE PO (08:39)
[2021-05-01] MEDS: Meclizine HCl 25 MG TABLET PO (08:39)
[2021-05-01] MEDS: Aspirin Enteric Coated 81 MG TABLET.DR PO (08:39)
[2021-05-01 08:55] LABS: Syphilis Screen Nonreactive (Nonreactive)
[2021-05-01 10:54] VITALS: BP 128/68; PULSE 86; O2SAT 99
[2021-05-01 11:08] VITALS: BP 133/65; PULSE 98; RESP 16; TEMP 36.2; O2SAT 99
--- NOTE | 2021-05-01 11:15 | MHC.CM.PN ---
PT AND FAMILY AWARE PT WAS RECOMMENDING STR. SEVERAL REFERRALS WERE MADE HOWEVER PTS INSURANCE DOES NOT COVER THIS BENEFIT. CM SPOKE WITH PT AND HER DAUGHTER WHO WAS AT BEDSIDE. CM INFORMED THEM OF THE ABOVE INFORMATION. PTS DAUGHTER REPORTS SHE WAS INFORMED ONCE THE PTS BCBS INSURANCE ENDS SHE COULD SIGN THE PT UP FOR STANDARD. SHE IS AWARE THE PTS BCBS WILL NOT END UNTIL THE END OF THE MONTH HOWEVER AND WILL NOT ALLOW HER TO GO TO STR TODAY. SHE IS AWARE THE PT CAN GO TO OUTPATIENT PT AND REQUESTS A REFERRAL THERE. CURRENT DC PLAN IS HOME WITH FAMILY CARE AND OUTPATIENT PT. FAMILY TO TRANSPORT
--- NOTE | 2021-05-01 11:20 | P.DS_ITS ---
DS: Providers Provider Date of Service: 05/01/21 Date of admission: 04/28/21 17:29 Primary care physician: Unknown Physician Consults: 04/28/21 17:30 Consult to Neurology Routine Consulting Provider: [facility] Reason for consultation: weakness, falls? CIDP Has provider been notified: No Attending physician on discharge: Ethan Reynolds DS: Diagnosis Discharge Diagnosis (1) Neuropathy: Status: Acute DS: Summary Hospital Course Hospital Course: From H&P on day of admission ?55 year old women visiting from [place] presents with weakness and falls. She reported that 2 months ago she was diagnosed with chronic inflammatory demyelinating polyneuropathy about 2 months ago. Just prior to that she had been in remission for her non hodgkins lymphoma.She was diagnosed 2 years ago and underwent chemotherapy and radiation.Over the last week she had weakness, falls and unsteady gait. She denied loss of consciousness, chest pain, shortness of breath, nausea, vomiting, diarrhea, loss of bowel or bladder function.? Labs are not impressive but she does have some anemia with hemoglobin of 9.1 and hematocrit of 31.0.? Chest x- ray showing some ground-glass atelectasis, chest CTA pending.? Vital signs are stable.? She received a dose of meclizine and 1 L of IV fluid in the ER she will be admitted to observation for falls and dizziness. Patient was admitted to the hospital due to dizziness and falls. Her she was evaluated by Neurology who recommended Lyme, syphilis, brain MRI and LP for CSF testing. Brain MRI showed no acute changes, nonspecific white matter changes. Syphilis RPR was nonreactive. Lyme screen pending at the time of discharge. LP was done, CSF protein was 56.3, otherwise fluid analysis was unremarkable. Gram stain and culture were negative. Symptoms are thought to be related to peripheral neuropathy verses possible CIDP. She was seen by Physical therapy who recommended acute rehab unfortunately the patient does not have insurance benefits and ultimately she will be discharged home with family who understand and is agreeable She is encouraged to follow with Neurology as outpatient for ongoing workup. Time Spent with Patient Time attestation: Total time spent providing and/or coordinating discharge services: Discharge coordination time: Greater than 30 minutes Quality: Stroke Does the patient have a stroke diagnosis?: No Physical Exam Vital Signs: Vital Signs: Last Vital Signs Temp 97.1 F 05/01/21 11:08 Pulse 98 05/01/21 11:08 Resp 16 05/01/21 11:08 BP 133/65 05/01/21 11:08 Pulse Ox 99 05/01/21 11:08 Body Mass Index 27.3 Const: Nutritional Appearance: well nourished Orientation/consciousness: patient oriented x3 HENMT: Head: Yes normocephalic and Yes atraumatic Eyes: Sclerae: sclerae normal Resp: Effort & Inspection: normal respiratory effort and no respiratory distress Cardio: Rate: regular rate Rhythm: regular rhythm GI: Palpation (GI): Soft to palpation and nontender Neuro: General: patient oriented x3 Cranial nerves: Yes CN's II-XII intact bilaterally and Yes Bilaterally intact EOM present DS: Data Data Completed and Pending Labs on day of discharge: Laboratory Results - last 24 hr 04/30/21 04/30/21 04/30/21 05:45 11:44 17:19 POC Glucose 123 H 142 H T.pallidum Ab (EIA) Nonreactive 04/30/21 05/01/21 20:31 07:22 POC Glucose 105 99 T.pallidum Ab (EIA) Preliminary micro results at discharge 04/29/21 Unknown CSF Culture - Preliminary Cerebrospinal Fluid No growth after 2 days Discharge Plan Discharge Patient Disposition: Home, Self-Care Referrals: Gomez Olivier MD [Physician] - 1 Week Physician,Unknown [Primary Care Provider] - 1 Week Discharge Medications: Continued cyanocobalamin (vitamin B-12) [Vitamin B-12] 100 mcg Tablet 100 mcg PO DAILY RF: 0 simvastatin 40 mg Tablet 40 mg PO BEDTIME RF: 0 temazepam 30 mg Capsule 30 mg PO BEDTIME PRN (Reason: Insomnia) RF: 0 lorazepam 2 mg Tablet 2 mg PO BID PRN (Reason: Anxiety) RF: 0 meclizine 25 mg Tablet 25 mg PO DAILY RF: 0 lithium carbonate 300 mg Capsule 300 mg PO BID RF: 0 metformin 1,000 mg Tablet 1,000 mg PO BID RF: 0 omeprazole 20 mg Capsule,Delayed Release(Dr/Ec) 20 mg PO DAILY RF: 0 sennosides 25 mg Tablet 25 mg PO BEDTIME PRN (Reason: Constipation) RF: 0 nortriptyline 50 mg Capsule 100 mg PO BEDTIME RF: 0 Lantus U-100 Insulin 100 unit/mL Solution 5 unit SUBCUT BEDTIME PRN (Reason: Hyperglycemia) RF: 0 aspirin 81 mg Tablet,Delayed Release (Dr/Ec) 81 mg PO DAILY RF: 0 Discharge Orders: Discharge Order (Routine); Ordered 05/01/21 Ordered By: Nichelle Taveras Diet: advance to usual diet Activity on Discharge: As tolerated Stand Alone Forms: Patient Portal Discharge page Other Ambulatory Orders: PT Evaluation and Treatment (Routine) Location: None Selected Ordered By: Nichelle Taveras Care Plan Goals: To get work up for Neurological condition. Health Concerns: Neuropathy Possible CIDP Plan of Treatment: Continue chronic medications. Follow up with Dr. Olivier Assessment: 55 yo with chronic neurological symptoms. Underwent MRI and LP. Will be following up with Dr. Olivier in the neurology clinic for further work up.
[2021-05-01 11:21] LABS: Glucose, Whole Blood 194 mg/dL (60-115)
[2021-05-01 22:42] LABS: Lyme Abs Screen <0.90 index
== END 2021-05-01 15:30 | disposition home or self-care (01) ==
LOC: HO.ED 15:37 → HO.S3 21:35 → HO.EDOVER 04-30 09:16
PROVIDERS: Admitting Provider Nurse Practitioner Acute Care; Emergency Provider Emergency Medicine Emergency Medical Services; Visit Provider Physician Assistant Medical
DX: M79.2 Neuralgia and neuritis, unspecified (principal); R42 Dizziness and giddiness; G89.29 Other chronic pain; F31.9 Bipolar disorder, unspecified; E27.40 Unspecified adrenocortical insufficiency; E11.9 Type 2 diabetes mellitus without complications; D64.9 Anemia, unspecified; E78.5 Hyperlipidemia, unspecified; Z20.822 Contact with and (suspected) exposure to COVID-19; Z91.81 History of falling; Z85.72 Personal history of non-Hodgkin lymphomas; Z79.4 Long term (current) use of insulin; Z79.82 Long term (current) use of aspirin; Z79.899 Other long term (current) drug therapy
CPT/HCPCS: 36415; 62328; 70450; 70553; 71045; 71250; 80048; 80061; 80076; 80178; 81001; 81003; 82077; 82310; 82945; 82947; 83735; 84157; 84443; 84484; 85025; 85027; 85610; 85652; 86140; 86617; 86618; 86780; 87015; 87070; 87086; 87116; 87205; 87635; 89051; 93005; 96360; 96361; 96372; 96375; 97116; 97162; 97166; 99218; 99285; A9585; J1650

== ENCOUNTER 2021-05-13 10:28 | Outpatient (REF) | payer MEDICAID, SELFPAY ==
[2021-05-13 14:00] LABS: Hematocrit 33.9 % (37-47); Hemoglobin 10.1 g/dl (12.0-16.0); Mean Corpuscular HGB Conc 29.8 g/dl (31.0-35.0); Mean Corpuscular Hemoglobin 26.6 pg (27.0-33.0); Mean Corpuscular Volume 89.4 fL (80-98); Mean Platelet Volume 12.4 fL (9.4-12.3); Platelet Count 356 X10*3/uL (160-400); Red Blood Count 3.79 X10*6/uL (4.20-5.50); Red Cell Distribution Width 14.8 % (11.0-16.0)
== END 2021-05-13 10:29 | disposition home or self-care (01) ==
LOC: HO.WFDLDS 10:28
PROVIDERS: Visit Provider Hospitalist
DX: Z00.00 Encounter for general adult medical examination without abnormal findings (principal)
CPT/HCPCS: 36415; 85027

== ENCOUNTER 2021-05-20 11:07 | Emergency (ER) | payer MEDICAID, SELFPAY | END 2021-05-20 14:15 | disposition left against medical advice (07) | PROVIDERS: Emergency Provider Emergency Medicine; PCP Hospitalist | DX: R51.9 Headache, unspecified (principal); M25.569 Pain in unspecified knee ==

== ENCOUNTER 2021-06-08 09:31 | Outpatient (REF) | payer OTHER, SELFPAY ==
[2021-06-08 10:12] LABS: Lithium 0.96 mmol/L (0.60-1.20)
== END 2021-06-08 09:32 | disposition home or self-care (01) ==
LOC: HO.LAB 09:31
PROVIDERS: PCP Hospitalist; Visit Provider Psychiatry & Neurology Neurology
DX: F31.9 Bipolar disorder, unspecified (principal); Z79.899 Other long term (current) drug therapy
CPT/HCPCS: 36415; 80178

== ENCOUNTER 2021-06-23 07:23 | Outpatient (REF) | payer OTHER, SELFPAY ==
[2021-06-23 08:06] LABS: Hematocrit 33.4 % (37.0-47.0); Hemoglobin 9.6 g/dl (12.0-16.0); Mean Corpuscular HGB Conc 28.7 g/dl (31.0-35.0); Mean Corpuscular Hemoglobin 26.4 pg (27.0-33.0); Mean Corpuscular Volume 91.8 fL (80.0-98.0); Mean Platelet Volume 11.7 fL (9.4-12.3); Platelet Count 259 X10*3/uL (160-400); Red Blood Count 3.64 X10*6/uL (4.20-5.50); Red Cell Distribution Width 15.1 % (11.0-16.0); White Blood Count 6.9 X10*3/uL (4.8-10.8)
[2021-06-23 08:41] LABS: Alanine Aminotransferase 9 U/L (0-31); Albumin Level 3.9 g/dL (3.5-5.0); Alkaline Phosphatase 67 U/L (39-117); Anion Gap 12 (12-20); Aspartate Amino Transferase 11 U/L (5-31); Bilirubin Total 0.2 mg/dL (0.0-1.0); Blood Urea Nitrogen 16 mg/dL (9-16); Calcium 8.7 mg/dL (8.4-10.2); Carbon Dioxide 25 mmol/L (22-29); Chloride 109 mmol/L (96-108); Cholesterol 126 mg/dL; Estimated Glomerular Filt Rate 45; Glucose Fasting 181 mg/dL (60-99); HDL Cholesterol 49 mg/dL; LDL Cholesterol Calculated 58 mg/dl; Sodium 142 mmol/L (135-145); Total Protein 6.2 g/dL (6.5-8.0); Triglycerides 96 mg/dL
[2021-06-23 09:04] LABS: TSH reflex Free T4 4.29 uIU/mL (0.32-4.0)
[2021-06-23 09:26] LABS: Folate 10.3 ng/mL (> or = 4.0); Vitamin B12 295 pg/mL (200-900)
[2021-06-23 10:04] LABS: Free T4 (Free Thyroxine) 0.84 ng/dL (0.71-1.85)
== END 2021-06-23 07:24 | disposition home or self-care (01) ==
LOC: HO.LAB 07:23
PROVIDERS: PCP Hospitalist; Visit Provider Hospitalist
DX: Z00.00 Encounter for general adult medical examination without abnormal findings (principal); D64.9 Anemia, unspecified
CPT/HCPCS: 36415; 80053; 80061; 82607; 82746; 84439; 84443; 85027

== ENCOUNTER 2021-07-22 08:00 | Outpatient (RCR) | payer OTHER, SELFPAY ==
[2021-06-23 08:10] VITALS: BP 101/59; PULSE 81; O2SAT 100
--- NOTE | 2021-09-18 13:01 | MHC.PT.DC ---
[facility] [place] Office [place] Office [place] Office [address] Eusebio Vick [address] [phone] F: [phone] F: [phone] F: [phone] F: [phone] Physical Therapy Discharge Report Diagnosis: NEUROPATHY- script from [facility] GUIDE HER TO DO REGULAR EXERCISES FOR DIABETES Date of Surgery: Date of Evaluation: 06/23/21 Date of Discharge: 09/18/21 Treatments to Date: 10 Cancellations to Date: 2 No Shows to Date: 0 Discharge Status: Achieved Goals Improved Function Patient Elected to Stop Discharge Summary: Pt HAS PROGRESSED WITH OVERALL EXER, FUNCTIONAL MOB, AND ACTIVITY LA NENA- SHE HAS IMPROVED CORE/ LEs STRENGTH EVIDENT W HER ABILITY TO INCR REPS AND RESISTANCE/ LEVEL OF DIFFIC- Pt WAS ON VACATION x 3 WKS AND SHE DID NOT RETURN FOR PT, SHE IS D/C AT THIS TIME W HER HEP Electronically signed by: Zelda Rush,PT Please sign and return to therapist. Thank you for your referral.
== END 2021-09-18 13:02 | disposition home or self-care (01) ==
LOC: HO.PT 08:00
PROVIDERS: PCP Hospitalist; Visit Provider Psychiatry & Neurology Neurology
DX: G62.9 Polyneuropathy, unspecified (principal)
CPT/HCPCS: 97110; 97163; 97530

== ENCOUNTER 2021-10-30 07:48 | Outpatient (REF) | payer OTHER, SELFPAY ==
--- NOTE | ~2021-10-30 | XR_ITS ---
EXAMINATION: XR SHOULDER, RIGHT CLINICAL INFORMATION: Pain. COMPARISON: None TECHNIQUE: AP external rotation, Grashey, scapular Y, and axillary views of the right shoulder. FINDINGS: The bones and soft tissues are normal. No fracture. Glenohumeral and acromioclavicular alignment is anatomic with normal joint space. No abnormal soft tissue calcifications. XR/XR shoulder LT min 2V IMPRESSION: Normal right shoulder. EXAMINATION: XR SHOULDER, LEFT CLINICAL INFORMATION: Pain. COMPARISON: None TECHNIQUE: AP external rotation, Grashey, scapular Y, and axillary views of the left shoulder. FINDINGS: The bones and soft tissues are normal. No fracture. Glenohumeral and acromioclavicular alignment is anatomic with normal joint space. No abnormal soft tissue calcifications. IMPRESSION: Normal left shoulder.
--- NOTE | ~2021-10-30 | XR_ITS ---
EXAMINATION: XR SHOULDER, RIGHT CLINICAL INFORMATION: Pain. COMPARISON: None TECHNIQUE: AP external rotation, Grashey, scapular Y, and axillary views of the right shoulder. FINDINGS: The bones and soft tissues are normal. No fracture. Glenohumeral and acromioclavicular alignment is anatomic with normal joint space. No abnormal soft tissue calcifications. XR/XR shoulder RT min 2V IMPRESSION: Normal right shoulder. EXAMINATION: XR SHOULDER, LEFT CLINICAL INFORMATION: Pain. COMPARISON: None TECHNIQUE: AP external rotation, Grashey, scapular Y, and axillary views of the left shoulder. FINDINGS: The bones and soft tissues are normal. No fracture. Glenohumeral and acromioclavicular alignment is anatomic with normal joint space. No abnormal soft tissue calcifications. IMPRESSION: Normal left shoulder.
[2021-10-30 08:41] LABS: Anion Gap 13 (12-20); Blood Urea Nitrogen 15 mg/dL (9-16); Calcium 10.2 mg/dL (8.4-10.2); Carbon Dioxide 27 mmol/L (22-29); Chloride 106 mmol/L (96-108); Estimated Glomerular Filt Rate 49; Glucose Fasting 127 mg/dL (60-99); Sodium 141 mmol/L (135-145)
[2021-10-30 09:05] LABS: Erythrocyte Sedimentation Rate 11 MM/HR (0-20)
[2021-11-02 18:07] LABS: CRP High Sensitivity 0.5 mg/L
== END 2021-10-30 07:49 | disposition home or self-care (01) ==
LOC: HO.XRAY 07:48
PROVIDERS: PCP Hospitalist; Visit Provider Hospitalist
DX: Z00.00 Encounter for general adult medical examination without abnormal findings (principal); M25.512 Pain in left shoulder; M25.511 Pain in right shoulder; Z91.81 History of falling
CPT/HCPCS: 36415; 73030; 80048; 85652; 86141

== ENCOUNTER 2021-11-20 08:00 | Outpatient (RCR) | payer OTHER, SELFPAY ==
--- NOTE | 2021-09-25 09:05 | MHC.PT.EP ---
[facility] [place] Office [place] Office [place] Office [address] Eusebio Vick [address] [phone] F: [phone] F: [phone] F: [phone] F: [phone] Physical Therapy Plan of Care Date of Evaluation: Date of Surgery: NA Diagnosis: Autonomic neuropathy in diseases classified eleswhere Assessment: Nancie is 55 year old female who is referred to PT for Autonomic neuropathy in diseases classified eleswhere . Nancie was in PT for neuropathy about a 3 months back and was d/c a month back. Per pt she was doing great however ended up having 3 falls which has made her weak and unsteady. On PT examination she reported of having a constant 6/10 pain in B knees, decreased strength in B LE, decreased ankle ROM, impaired posture, balance and gait. She is currently needing help with ADLS like dressing, and showering and she does not participate in any IADLS at home. She was independent with all ADLS in the past. 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 She would benefit from skilled PT to address the aforementioned impairments and improve tolerance to functional activities. Frequency and Duration: The patient will be seen 2/ week for 6 weeks Short Term Goals: 1. Pt will have 50% decrease in pain which will enable her to shower independently in 2 weeks. 2. Pt will have all ankle ROM WNL which will enable her to go up and down the stairs with one UE support in 3 weeks Usp Goals: 1. Pt will demonstrate an increase in muscle strength by 1 grade which will enable her to dress herself independently and walk for about an hour without pain in 5 weeks. 2. Pt will be independent with HEP for symptom management and maintenance following d/c in 6 weeks. Treatment Plan: Modalities to reduce pain, spasms and effusion. Manual therapy to restore motion and function. Therapeutic exercise to improve strength and flexibility. Neuromuscular re-education for posture and balance. Therapeutic activities to return to functional activities of daily living. Electronically signed by: Celina Parkinson PT DPT Please sign and return to therapist. Thank you for your referral.
--- NOTE | 2021-11-20 08:49 | MHC.PT.DC ---
[facility] [place] Office [place] Office [place] Office [address] Eusebio Vick [address] [phone] F: [phone] F: [phone] F: [phone] F: [phone] Physical Therapy Discharge Report Diagnosis: Autonomic neuropathy in diseases classified eleswhere Date of Surgery: NA Date of Evaluation: 09/25/21 Date of Discharge: 11/20/21 Treatments to Date: 12 Cancellations to Date: 0 No Shows to Date: 0 Discharge Status: Achieved Goals Improved Function Independent with HEP Discharge Summary: Nancie has completed 12 PT visits. She has improved significantly and has achieved all goals set for her. She is independent with her HEP as well. She has returned to PLOF. She is therefore being d/c from PT. Nancie is in agreement with the plan. Electronically signed by: Celina Parkinson PT DPT Please sign and return to therapist. Thank you for your referral.
== END 2021-12-16 08:12 | disposition home or self-care (01) ==
LOC: HO.PT 08:00
PROVIDERS: PCP Hospitalist; Visit Provider Hospitalist
DX: G62.9 Polyneuropathy, unspecified (principal); G99.0 Autonomic neuropathy in diseases classified elsewhere
CPT/HCPCS: 97110; 97112; 97161; 97530

== ENCOUNTER 2022-02-02 09:00 | Outpatient (RCR) | payer OTHER, SELFPAY ==
--- NOTE | 2021-12-10 14:43 | MHC.PT.EP ---
[facility] [place] Office [place] Office [place] Office [address] Eusebio Vick [address] [phone] F: [phone] F: [phone] F: [phone] F: [phone] Physical Therapy Plan of Care Date of Evaluation: Date of Surgery: NA Diagnosis: MERRILL SHOULDER PAIN Assessment: PRATEEK IS A PLEASANT 56 YO FEMALE WHO PRESENTS WITH MERRILL SHOULDER PAIN WITH S/S CONSISTENT WITH IMPINGEMENT SYNDROME. UPON EXAM SHE DEMONSTRATES THE IMPAIRMENTS OF DECREASED ROM, DECREASED STRENGTH, ALTERED POSTURE AND POSITIONING, INCREASED UPPER TRAP GUARDING, AND INCREASED PAIN AND EDEMA. FUNCTIONAL LIMITATIONS INCLUDE DECREASED ABILITY TO PERFORM HOMEMAKING AND SELF-CARE TASKS, DECREASED ABILITY TO PERFORM PUSHING, PULLING, LIFTING AND REACHING. INABILITY TO DRIVE AND PERFORM WORK TASKS, DECREASED PARTICIPATION IN COMMUNITY AND RECREATIONAL ACTIVITIES AND DISRUPTED SLEEP. THE PT IS A GOOD CANDIDATE FOR SKILLED PT DUE TO AGE, POTENTIAL REMEDIATION OF IMPAIRMENTS, TYPICAL DISEASE/CONDITION PROGRESSION AND PROGNOSIS, COMORBIDITIES, AND MOTIVATION. PT WOULD BENEFIT FROM TAILORED PROGRAM OF THERAPEUTIC ACTIVITIES, FUNCTIONAL TRAINING, GAIT TRAINING, POSTURAL EDUCATION, NEUROMUSCULAR RE-EDUCATION, AND MODALITIES NEEDED. Frequency and Duration: The patient will be seen 2 X WEEK FOR 4 WEEKS THEN REASSESS PRN Short Term Goals: INITIATE HEP AND PROMOTE SELF MANAGEMENT OF SYMPTOMS Edge Inker Heels Goals: FULL, PAIN FREE ROM FULL UE STRENGTH, PAIN FREE TO PERFORM HOMEMAKING TASKS WITHOUT RESTRICTION AND PAIN NO GREATER THAN 2/[address] OBJECT AT MINIMUM OF 5# INTO CABINET AT SHOULDER HEIGHT Treatment Plan: Modalities to reduce pain, spasms and effusion. Manual therapy to restore motion and function. Therapeutic exercise to improve strength and flexibility. Neuromuscular re-education for posture and balance. Therapeutic activities to return to functional activities of daily living. Electronically signed by: JEFFREY PASCUAL PT, DPT Please sign and return to therapist. Thank you for your referral.
--- NOTE | 2022-02-02 10:01 | MHC.PT.DC ---
[facility] [place] Office [place] Office [place] Office [address] Eusebio Vick 140 [facility] [phone] F: [phone] F: [phone] F: [phone] F: [phone] Physical Therapy Discharge Report Diagnosis: MERRILL SHOULDER PAIN Date of Surgery: NA Date of Evaluation: 12/10/21 Date of Discharge: 02/02/22 Treatments to Date: 7 Cancellations to Date: 0 No Shows to Date: 0 Discharge Status: Insurance Declined Tx Discharge Summary: Nancie utilized all insurance approved visits. Although she continues to reports soreness in merrill shoulders she was encouraged to continue with use of heat/ice and home program until her MD F/U in March. If further therapy is indicated at that time we may be able to pursue additional visit authorization. In the meantime, id symptoms persist perhaps alternative treatments can be pursued. Electronically signed by: Clarita Fuentes PT, DPT Please sign and return to therapist. Thank you for your referral.
== END 2022-02-02 10:01 | disposition home or self-care (01) ==
LOC: HO.PT 09:00
PROVIDERS: PCP Hospitalist; Visit Provider Hospitalist
DX: M25.511 Pain in right shoulder (principal)
CPT/HCPCS: 97110; 97112; 97140; 97162

== ENCOUNTER 2023-07-27 10:24 | Outpatient (AMB) | payer OTHER, SELFPAY ==
--- NOTE | 2023-07-27 10:27 | MHC.PC.OV ---
Vital Signs 07/27/23 10:29 Height 5 ft 3 in Weight 139 lb 8 oz BMI 24.7 BP 124/70 Blood Pressure Location Rt brachial Position Sitting Respiration 13 Pulse 113 H Pulse Source Pulse Oximeter Temp 97.4 F Temp Source Temporal Artery Scan Pulse Oximetry (%) 98 Oxygen Delivery Method Room Air Intake Visit Reasons: MENDY, F/U DIABETES/NEEDS PHQ9 + THRIVE Intake Note: Patient would like a new order put in for walker due to the old one being accidentally taken when her neice moved. Patient would like a rollator #[id number] to [employer] Continuous Process Required: Yes [employer] Continuous Process Name: [id number] Accompanied by: Self / Same As Patient Allergies No Known Allergies Allergy (Verified 07/27/23 10:58) Medication List - Last Reconciled 07/27/23 by Radha Grayson CNP aspirin 81 mg PO DAILY blood-glucose meter Blood glucose monitoring to 3 times a day chair, wheel (Wheel chair) As directed cyanocobalamin (vitamin B-12) (Vitamin B-12) 100 mcg PO DAILY 3 months famotidine (Pepcid) 20 mg PO DAILY 3 months ferrous sulfate (Feosol) 325 mg PO BID 1 month food supplemt, lactose-reduced (Ensure High Protein oral liquid) one can in place of a meal or to supplement reduced intake up to 3 per day; 1 month gabapentin 600 mg (2 x 300 mg) PO BEDTIME insulin glargine (Lantus U-100 Insulin) 20 units (0.2 mL) subcut BEDTIME 1 month lithium carbonate 300 mg PO BID 90 days lorazepam 2 mg PO BID PRN 1 month metformin 1,000 mg PO BID 1 month nortriptyline 100 mg (2 x 50 mg) PO BEDTIME 90 days sennosides 25 mg PO BEDTIME PRN simvastatin 40 mg PO BEDTIME 3 months temazepam 30 mg PO BEDTIME PRN 1 month walker As directed Tobacco use date assessed: 07/27/23 Dental Screening Dental Screen Date: 07/27/23 Did you have a dental visit in the last 12 months?: Yes Did you have a dental problem in the last 6 months where you did not have access to dental care?: No Was dental information given to patient?: Patient has dentist HPI HPI Comments History of Present Illness Details 57-year-old [place]-speaking female presents for transfer of care Her former PCP is NGOZI who is no longer with the practice. Her last office visit and blood work was on 06/29/2022. Her last A1c was 5.8% She has history of type 1 diabetes, bipolar 1 disorder, anemia, GERD, and chronic peripheral neuropathic pain She admits to taking her medications as prescribed without adverse reactions She offers no complaints and denies acute symptoms at this time She denies hypoglycemia episodes She notes that she is followed by a psychiatrist every 3 months. Her last telehealth appointment was last month. She reports controlled bipolar symptoms. She requests [place] labs and notes that her psychiatrist does not monitor her lithium levels. Her last [place] level was in 05/2021: normal She notes that her last diabetic retinal exam was with opthalmologist, Dr. Larson in [place]: 3 months ago. Her next eye exam with Dr. Larson is in 09/2023. She notes that she prefers to follow up with Dr. Larson rather than an opthalmologist in the [facility]. She notes that she had surgical repair for strabismus of the the right eye by Dr. Larson about 10 years ago She notes that her last foot exam by podiatry in [place] was 3 months ago. She prefers podiatry in [facility] Medical History Chronic inflammatory demyelinating polyneuritis Adrenal insufficiency Bipolar 1 disorder Non-Hodgkin lymphoma in remission Surgical History H/O cardiac catheterization Social History Housing: House Alcohol intake: never Patient Tobacco Use Status: Never used Tobacco e-Cigarette/Vaping Use: Never Used Second Hand Smoke Exposure: No Advance Directives Date on File: 04/28/21 service: No Current occupational status: unemployed and disabled Current occupational exposures/hazards: No Cognitive needs: No Hearing needs: No Vision needs: Yes (Glasses) Questionnaire PHQ-9 Over the last 2 weeks, how often have you been bothered by any of the following problems? 1. Little interest or pleasure in doing things: more than half the days 2. Feeling down, depressed, or hopeless: more than half the days 3. Trouble falling or staying asleep, or sleeping too much: not at all 4. Feeling tired or having little energy: more than half the days 5. Poor appetite or overeating: nearly every day 6. Feeling bad about yourself - or that you are a failure or have let yourself or your family down: not at all 7. Trouble concentrating on things, such as reading the newspaper or watching television: not at all 8. Moving or speaking so slowly that other people could have noticed. Or the opposite - being so fidgety or restless that you have been moving around a lot more than usual: not at all 9. Thoughts that you would be better off or of hurting yourself in some way: not at all Total score: 9 Depression Screening Interpretation: Positive Depression Screening Done: Yes 50821 - PHQ-9 Billing: Yes Source: Developed by Drs. Oliver Nickerson, Priscila Estrada, Haja Weber and colleagues, with an educational johnny from [employer]. Thrive Questionnaire Date Thrive assessed: 07/27/23 I am a: Patient What is your living situation today?: I have a steady place to live Within the past 12 months, did the food you bought not last and you didn't have the money to get more?: Never true Within the past 12 months, did you worry whether your food would run out before you got money to buy more?: Never true Do you have trouble paying for medicines?: No Do you have trouble getting transportation to medical appointments?: No Do you have trouble paying your heating and electricity bill?: No Do you have trouble taking care of your child, family member or friend?: No Do you have trouble with day-to-day activities such as bathing, preparing meals, shopping, managing finances, etc.?: Yes Are you currently unemployed and looking for a job?: No Are you interested in more education?: No Please select the resources that you would like help with: Daily support Currently or been in a relationship where the following occur: no concerns reported AUDIT C Alcohol Use Questionnaire (AUDIT-C) 1. How often do you have a drink containing alcohol?: Never 3. How often do you have six or more drinks on one occasion?: Never Total Score: 0 FREDDY-7 AMB Questionnaire FREDDY-7 Date FREDDY - 7 assessed: 07/27/23 Feeling nervous, anxious, or on edge: 2 = More than half the days Not being able to stop or control worryin = More than half the days Worrying too much about different things: 2 = More than half the days Trouble relaxin = Not at all Being so restless that it is hard to sit still: 2 = More than half the days Becoming easily annoyed or irritable: 2 = More than half the days Feeling afraid as if something awful might happen: 0 = Not at all Total FREDDY-7 score (0-4 normal; 5-9 mild; 10-14 moderate; 15-21 severe): 10 Source: Developed by Drs. Oliver Nickerson, Priscila Estrada, Haja Weber and colleagues, with an educational johnny from [employer]. FREDDY-7 Assessment Billing FREDDY-7 Assessment Tool: FREDDY-7 Assessment 12787 Review of Systems Const Details: Const Denies chills, Denies fatigue, Denies fever(s), Denies headache(s) and Denies weakness ENT Denies dizziness and Denies headache(s) Card Denies chest pain, Denies lightheadedness, Denies dyspnea and Denies other (Palpitations) Resp Denies cough, Denies dyspnea, Denies wheezing and Denies other ( shortness of breath) GI Denies abdominal pain, Denies melena, Denies hematochezia, Denies change in bowel habits, Denies dyspepsia and Denies nausea Denies hematuria and Denies dysuria Musc Denies abnormal gait, Denies myalgias, Denies arthralgias, Denies numbness and Denies tingling Skin/Breast Denies rash, Denies unusual bruising and Denies wounds Neuro Denies abnormal gait, Denies dizziness, Denies headache(s), Denies memory loss, Denies numbness, Denies Sensory deficit (Neuro), Denies tingling and Denies weakness Psych Denies anxiety, Denies depression, Denies memory loss Endo Denies cold intolerance, Denies fatigue, Denies heat intolerance, Denies polydipsia and Denies polyuria Aller/Immun Denies wheezing Physical exam (Primary Care) Vital Signs: Last Vital Signs Temp 97.4 F 07/27/23 10:29 Pulse 113 H 07/27/23 10:29 Resp 13 07/27/23 10:29 BP 124/70 07/27/23 10:29 Pulse Ox 98 07/27/23 10:29 Oxygen Delivery Method Room Air 07/27/23 10:29 BMI result Body Mass Index 24.7 Tobacco/Smoking Status: Tobacco use Status Tobacco use date assessed 07/27/23 07/27/23 10:52 Patient Tobacco Use Status Never used Tobacco 07/27/23 10:39 e-Cigarette/Vaping Use Never Used 07/27/23 10:39 PHQ-9: PHQ-9 Score PHQ-9: Total score 9 07/27/23 10:58 Depression Screening Interpretation: Positive Thrive Assessment: Date of Thrive Assessment Date Thrive assessed 07/27/23 07/27/23 10:58 Currently or been in a relationship where the following occur: no concerns reported Const Other: General: no acute distress and well developed Nutritional Appearance: well nourished Orientation/consciousness: patient oriented x3 HENMT Head: Yes normocephalic and Yes atraumatic Eyes General: appearance normal, both eyes and all related structures Pupils: Equal, round and reactive pupils present EOM: EOMs intact bilaterally Resp Effort & Inspection: normal respiratory effort Auscultation: clear to auscultation bilaterally Cardio Rate: regular rate Rhythm: regular rhythm Heart sounds: S1 normal heart sound present, S2 normal heart sound present, no gallops, no murmurs and no rubs GI Palpation (GI): No Abdominal aortic bruit present, Soft to palpation, nontender, No hepatosplenomegaly present and No Rebound tenderness present Auscultation: normal bowel sounds General: Yes no CVA tenderness Back/Spine/Pelvis Back: no CVA tenderness Cervical Spine: cervical ROM normal and No Cervical spine tenderness Thoracic/Lumbar Spine: thoraco-lumbar ROM normal, No pain with thoraco-lumbar ROM, No thoracic spinal tenderness and No lumbar spinal tenderness Extrem General: Yes normal to inspection, No edema and No calf tenderness Skin General: warm and dry. Normal skin color. Normal skin turgor Lesions: no lesions Rashes: no rashes Trauma: no lacerations or abrasions Wounds: no wounds Nails: normal Neuro General: patient oriented x3, gait normal and no focal neuro deficit Cranial nerves: Yes Equal, round and reactive pupils present Cognition (Neuro): normal cognition Gait exam (Neuro): Normal gait present Sensory Exam: No Sensory deficit (Neuro) Psych Appearance: grossly normal Affect: normal affect Attitude: cooperative Thought process: Normal thought process present Results AMB Hemoglobin A1c AMB Hemoglobin A1c 5.7 % Last Edit by Alicia Larios MA on 07/27/23 11:05 Assessment and Plan Assessment & Plan (1) DM type 1 causing neurological disease: Code(s): E10.49 - Type 1 diabetes mellitus with other diabetic neurological complication Plan: A1c today is 5.7%, within goal of less than 7.0%. Previous A1c was 5.8% No hypoglycemic episodes Last eye and foot exam was 3 months ago in [place]. She prefers to follow Ophthalmology and Podiatry in [place] Will check lipid levels. Will also check urine microalbumin/creatinine ratio Continue current treatment regimen ADA diet and routine exercise encouraged Will recheck A1c in 3 months Advised to bring her medical records for podiatry and ophthalmology Follow-up in 1 month for a complete physical exam and labs review Reports sooner with symptoms or concerns Verbalized understanding and agreed with treatment plan Patient is [place]-speaking mostly, interpretation by professional radio news writer via electronic tablet (2) Bipolar 1 disorder: Code(s): F31.9 - Bipolar disorder, unspecified Plan: She is on lithium 30 mg twice daily. She reports controlled bipolar symptoms PHQ-9 and FREDDY-7 scores revealed mild depression and moderate anxiety respectively She is followed by a psychiatrist via telehealth. Her last appointment was last month. She notes that her psychiatric provider does not monitor her lithium, kidney, and thyroid functions. Her last lithium level was in May 2021: normal. She requests lithium lab [place] levels ordered. Will review results and make changes or recommendations as needed Patient encouraged to discuss lithium, kidney function, and thyroid labs monitoring while on lithium and notify her PCP of plan at her next visit Continue to take lithium as prescribed and follow-up with psychiatrist as planned Return with worsening or new symptoms Verbalized understanding and agreed with the treatment plan (3) Laboratory tests ordered as part of a complete physical exam (CPE): Code(s): Z00.00 - Encounter for general adult medical examination without abnormal findings Plan: Fasting labs ordered as part of a complete physical exam. Advised to fast for at least 10 hours before getting labs drawn. May drink water Verbalized understanding and agreed with treatment plan. Orders: Orders Microalbumin, Random (w Creat) Today E10.49 - Type 1 diabetes mellitus with other diabetic neurological complication Complete Blood Count Auto Diff Today E10.49 - Type 1 diabetes mellitus with other diabetic neurological complication, Z00.00 - Encounter for general adult medical examination without abnormal findings [place] Today F31.9 - Bipolar disorder, unspecified Comprehensive [place]. Panel Fast Today E10.49 - Type 1 diabetes mellitus with other diabetic neurological complication, Z00.00 - Encounter for general adult medical examination without abnormal findings Lipid Panel Today E10.49 - Type 1 diabetes mellitus with other diabetic neurological complication, Z00.00 - Encounter for general adult medical examination without abnormal findings TSH reflex Free T4 Today Z00.00 - Encounter for general adult medical examination without abnormal findings UA CC w/rflx Micro + Cult Today Z00.00 - Encounter for general adult medical examination without abnormal findings AMB Hemoglobin A1c Today Z13.9 - Encounter for screening, unspecified Medications: New miscellaneous medical supply 1 rollator walker 1 ea 0RF Coding Level of Care Code Est Pt Level 4 (17967) Diagnoses DM type 1 causing neurological disease E10.49 Bipolar 1 disorder F31.9 Laboratory tests ordered as part of a complete physical exam (CPE) Z00.00 Additional Codes FREDDY-7 Assessment Billing - FREDDY-7 Assessment Tool: FREDDY-7 Assessment 66941 ([id number])
[2023-07-27 10:29] VITALS: BP 124/70; PULSE 113; RESP 13; TEMP 36.3; O2SAT 98; BMI 24.7
== END 2023-07-27 11:41 | disposition home or self-care (01) ==
PROVIDERS: PCP Hospitalist; Visit Provider Nurse Practitioner Family
DX: E10.49 Type 1 diabetes mellitus with other diabetic neurological complication (principal); F31.9 Bipolar disorder, unspecified; Z79.4 Long term (current) use of insulin
CPT/HCPCS: 83036; 96127; 99214

== ENCOUNTER 2023-10-17 07:55 | Outpatient (REF) | payer MEDICARE, SELFPAY ==
[2023-10-17 11:34] LABS: Appearance Urine Clear; Color Urine Yellow; Glucose Urine UA Negative (Negative); Leukocyte Esterase Urine Negative (Negative); Nitrite Urine Negative (Negative); Urine Blood Negative (Negative); Urine Ketones Negative (Negative); Urine Protein Negative (Neg-Trace)
[2023-10-17 11:37] LABS: MANUAL DIFF FLAG NO
[2023-10-17 11:49] LABS: Basophils Percent Auto 0.5 % (0-2); Eosinophils Absolute Auto 0.1 X10*3/uL (0.0-0.4); Eosinophils Percent Auto 1.3 % (0-4); Hematocrit 33.4 % (37.0-47.0); Hemoglobin 10.3 g/dl (12.0-16.0); Imm Gran Abs Auto 0.02 X10*3/uL (0.00-0.03); Imm Gran Pct Auto 0.2 % (0.0-0.4); Lymphocytes Absolute Auto 1.9 X10*3/uL (1.2-4.9); Mean Corpuscular HGB Conc 30.8 g/dl (31.0-35.0); Mean Corpuscular Hemoglobin 26.6 pg (27.0-33.0); Mean Corpuscular Volume 86.3 fL (80.0-98.0); Mean Platelet Volume 11.7 fL (9.4-12.3); Monocytes Absolute Auto 0.6 X10*3/uL (0.1-1.2); Monocytes Percent Auto 7.7 % (2-11); Neutrophils Absolute Auto 5.6 x10*3/uL (2.0-8.3); Neutrophils Percent Auto 67.3 % (45-73); Platelet Count 316 X10*3/uL (160-400); Red Blood Count 3.87 X10*6/uL (4.20-5.50); Red Cell Distribution Width 14.3 % (11.0-16.0); White Blood Count 8.3 X10*3/uL (4.8-10.8)
[2023-10-17 12:15] LABS: Alanine Aminotransferase 11 U/L (0-31); Albumin Level 4.1 g/dL (3.5-5.0); Alkaline Phosphatase 78 U/L (39-117); Anion Gap 12 (12-20); Aspartate Amino Transferase 18 U/L (5-31); Bilirubin Total 0.2 mg/dL (0.0-1.0); Blood Urea Nitrogen 17 mg/dL (9-16); Calcium 9.6 mg/dL (8.4-10.2); Carbon Dioxide 24 mmol/L (22-29); Chloride 111 mmol/L (96-108); Cholesterol 169 mg/dL (<200); Estimated Glomerular Filt Rate 56; HDL Cholesterol 62 mg/dL (>40); LDL Cholesterol Calculated 94 mg/dL (<100); Lithium < 0.10 mmol/L (0.60-1.20); Sodium 143 mmol/L (135-145); Triglycerides 68 mg/dL (<150)
[2023-10-17 12:18] LABS: Glucose Fasting 56 mg/dL (60-99)
[2023-10-17 12:25] LABS: TSH reflex Free T4 2.14 uIU/mL (0.32-4.0)
[2023-10-17 12:39] LABS: Creatinine Urine 43.45 mg/dL; Microalbumin Urine < 5.0 mg/L
== END 2023-10-17 07:56 | disposition home or self-care (01) ==
LOC: HO.WFDLDS 07:55
PROVIDERS: Visit Provider Nurse Practitioner Family
DX: Z00.00 Encounter for general adult medical examination without abnormal findings (principal); E10.49 Type 1 diabetes mellitus with other diabetic neurological complication; F31.9 Bipolar disorder, unspecified
CPT/HCPCS: 36415; 80053; 80061; 80178; 81003; 82043; 82570; 84443; 85025

== ENCOUNTER 2023-10-21 09:17 | Outpatient (AMB) | payer MEDICARE, SELFPAY ==
--- NOTE | 2023-10-21 09:28 | MHC.PC.OV ---
Vital Signs 10/21/23 09:37 Height 5 ft 3 in Weight 136 lb 4 oz BMI 24.1 BP 108/64 Blood Pressure Location Rt brachial Position Sitting Respiration 13 Pulse 105 H Pulse Source Pulse Oximeter Temp 97 F Temp Source Temporal Artery Scan Pulse Oximetry (%) 96 Oxygen Delivery Method Room Air Intake Visit Reasons: CPE, labs review [employer] Sales Representative Required: Yes [employer] Sales Representative Name: Hardy ([id number]) Accompanied by: Self / Same As Patient Allergies No Known Allergies Allergy (Verified 10/21/23 10:20) Medication List - Last Reconciled 10/21/23 by Radha Grayson CNP aspirin 81 mg PO DAILY blood-glucose meter Blood glucose monitoring to 3 times a day chair, wheel (Wheel chair) As directed cyanocobalamin (vitamin B-12) (Vitamin B-12) 100 mcg PO DAILY 3 months dapagliflozin propanediol (Farxiga) 5 mg PO DAILY famotidine (Pepcid) 20 mg PO DAILY 3 months ferrous sulfate (Feosol) 325 mg PO BID 1 month food supplemt, lactose-reduced (Ensure High Protein oral liquid) one can in place of a meal or to supplement reduced intake up to 3 per day; 1 month gabapentin 600 mg (2 x 300 mg) PO BEDTIME insulin glargine (Lantus U-100 Insulin) 20 units (0.2 mL) subcut BEDTIME 1 month lorazepam 2 mg PO BID PRN 1 month miscellaneous medical supply 1 rollator walker nortriptyline 100 mg (2 x 50 mg) PO BEDTIME 90 days sennosides 25 mg PO BEDTIME PRN simvastatin 40 mg PO BEDTIME 3 months temazepam 30 mg PO BEDTIME PRN 1 month walker Rollator walker Tobacco use date assessed: 10/21/23 Dental Screening Dental Screen Date: 10/21/23 Did you have a dental visit in the last 12 months?: Yes Did you have a dental problem in the last 6 months where you did not have access to dental care?: No Was dental information given to patient?: Patient has dentist HPI HPI Comments History of Present Illness Details 57-year-old Persian-speaking female presents for a complete physical exam She has history of type 1 diabetes, bipolar 1 disorder, anemia, GERD, and chronic peripheral neuropathic pain She admits to taking her medications as prescribed without adverse reactions She offers no complaints and denies acute symptoms at this time She notes that she is followed by a psychiatrist every 3 months. Her last telehealth appointment was . She reports controlled bipolar symptoms. She notes that her [place] was substituted with Depakote 250mg twice daily. She notes that her last diabetic retinal exam was with opthalmologist, Dr. Larson in [place]: 3 weeks ago; mild strabismus R eye, and glaucoma right glaucoma, no surgery required. She notes that she prefers to follow up with Dr. Larson rather than an opthalmologist in the [facility]. She notes that her last foot exam by podiatry in [place] was 6 months ago. She prefers podiatry in [place] She is followed by Dr. [facility], [place]; she was 3 weeks ago, her metformin was discontinued and replaced with Farxiga 5mg po daily She notes that her last Pap smear was with her sales and customer relations rep in [place] in 05/2023: normal She states that her last colonoscopy was with her gastroentrologist in [place] in 03/2023: normal She notes her last mammogram was with her sales and customer relations rep in [place] in 05/2023: normal She states that she is up-to-date on the shingles and flu vaccines Interpretation by professional translator and interpreter via electronic tablet [facility] Medical History Chronic inflammatory demyelinating polyneuritis Adrenal insufficiency Bipolar 1 disorder Non-Hodgkin lymphoma in remission Surgical History H/O cardiac catheterization Social History Housing: House Alcohol intake: never Patient Tobacco Use Status: Never used Tobacco e-Cigarette/Vaping Use: Never Used Second Hand Smoke Exposure: No Advance Directives Date on File: 04/28/21 service: No Current occupational status: unemployed and disabled Current occupational exposures/hazards: No Cognitive needs: No Hearing needs: No Vision needs: No (Glasses) Questionnaire PHQ-9 Over the last 2 weeks, how often have you been bothered by any of the following problems? 1. Little interest or pleasure in doing things: several days 2. Feeling down, depressed, or hopeless: not at all 3. Trouble falling or staying asleep, or sleeping too much: several days 4. Feeling tired or having little energy: several days 5. Poor appetite or overeating: several days 6. Feeling bad about yourself - or that you are a failure or have let yourself or your family down: nearly every day 7. Trouble concentrating on things, such as reading the newspaper or watching television: not at all 8. Moving or speaking so slowly that other people could have noticed. Or the opposite - being so fidgety or restless that you have been moving around a lot more than usual: not at all 9. Thoughts that you would be better off or of hurting yourself in some way: not at all Total score: 7 Depression Screening Interpretation: Positive Depression Screening Follow-up: Existing condition and In treatment Depression Screening Done: Yes 60247 - PHQ-9 Billing: Yes Source: Developed by Drs. Oliver Nickerson, Priscila Estrada, Haja Weber and colleagues, with an educational johnny from [email or web address]. Thrive Questionnaire Date Thrive assessed: 10/21/23 I am a: Patient What is your living situation today?: I have a steady place to live Within the past 12 months, did the food you bought not last and you didn't have the money to get more?: Never true Within the past 12 months, did you worry whether your food would run out before you got money to buy more?: Never true Do you have trouble paying for medicines?: No Do you have trouble getting transportation to medical appointments?: No Do you have trouble paying your heating and electricity bill?: No Do you have trouble taking care of your child, family member or friend?: No Do you have trouble with day-to-day activities such as bathing, preparing meals, shopping, managing finances, etc.?: No Are you currently unemployed and looking for a job?: No Are you interested in more education?: No Please select the resources that you would like help with: None Currently or been in a relationship where the following occur: no concerns reported THRIVE Score: 0 AUDIT C Alcohol Use Questionnaire (AUDIT-C) 1. How often do you have a drink containing alcohol?: Never 3. How often do you have six or more drinks on one occasion?: Never Total Score: 0 FREDDY-7 AMB Questionnaire FREDDY-7 Date FREDDY - 7 assessed: 10/21/23 Feeling nervous, anxious, or on edge: 0 = Not at all Not being able to stop or control worryin = Nearly every day Worrying too much about different things: 3 = Nearly every day Trouble relaxin = Several days Being so restless that it is hard to sit still: 0 = Not at all Becoming easily annoyed or irritable: 1 = Several days Feeling afraid as if something awful might happen: 1 = Several days Total FREDDY-7 score (0-4 normal; 5-9 mild; 10-14 moderate; 15-21 severe): 9 Source: Developed by Drs. Oliver Nickerson, Priscila Estrada, Haja Weber and colleagues, with an educational johnny from [email or web address]. FREDDY-7 Assessment Billing FREDDY-7 Assessment Tool: FREDDY-7 Assessment 01336 Review of Systems Const Details: Denies chills, Denies fatigue, Denies fever(s), Denies headache(s) and Denies weakness HEENT Denies change in vision, Denies dizziness, Denies headache(s), Denies hearing loss, Denies nasal congestion, Denies sinus pain, Denies sinus pressure and Denies sore throat Card Denies chest pain, Denies lightheadedness, Denies dyspnea and Denies other (palpitations) Resp Denies cough, Denies dyspnea and Denies wheezing GI Denies abdominal pain, Denies melena, Denies hematochezia, Denies change in bowel habits, Denies dyspepsia and Denies nausea Denies hematuria and Denies dysuria Musc Denies abnormal gait, Denies myalgias, Denies arthralgias, Denies numbness and Denies tingling Skin/Breast Denies rash, Denies unusual bruising and Denies wounds Neuro Denies abnormal gait, Denies dizziness, Denies headache(s), Denies memory loss, Denies numbness, Denies Sensory deficit (Neuro), Denies tingling and Denies weakness Psych Denies anxiety, Denies depression and Denies memory loss Endo Denies cold intolerance, Denies fatigue, Denies heat intolerance, Denies polydipsia and Denies polyuria Rangel/Lymph Denies easy bleeding and Denies easy bruising Aller/Immun Denies wheezing Physical exam (Primary Care) Vital Signs: Last Vital Signs Temp 97 F 10/21/23 09:37 Pulse 105 H 10/21/23 09:37 Resp 13 10/21/23 09:37 BP 108/64 10/21/23 09:37 Pulse Ox 96 10/21/23 09:37 Oxygen Delivery Method Room Air 10/21/23 09:37 BMI result Body Mass Index 24.1 Tobacco/Smoking Status: Tobacco use Status Tobacco use date assessed 10/21/23 10/21/23 09:53 Patient Tobacco Use Status Never used Tobacco 10/21/23 09:29 e-Cigarette/Vaping Use Never Used 10/21/23 09:29 PHQ-9: PHQ-9 Score PHQ-9: Total score 7 10/21/23 12:11 Depression Screening Interpretation: Positive Depression Screening Follow-up: Existing condition and In treatment Thrive Assessment: Date of Thrive Assessment Date Thrive assessed 10/21/23 10/21/23 09:53 Currently or been in a relationship where the following occur: no concerns reported Const Other: General: no acute distress, well developed, alert and awake Nutritional Appearance: well nourished Orientation/consciousness: patient oriented x3 HENMT Head: Yes normocephalic and Yes atraumatic Ears: hearing grossly normal bilaterally and TM's normal bilaterally General nose exam: Normal external nose present and Normal nares present Mouth: Normal oral and palatal mucosa present and moist mucous membranes Teeth and gingiva: dentition normal Throat: Yes oropharynx normal Eyes Pupils: Equal, round and reactive pupils present and Pupil accommodation reflex normal EOM: EOMs intact bilaterally Neck Neck: Yes normal visual inspection, Yes no lymphadenopathy and Yes trachea midline Thyroid: Thyroid normal Carotids: no bruits Lymphatic: no lymphadenopathy noted Chest Chest palpation & inspection: normal inspection of the chest Resp Effort & Inspection: normal respiratory effort Auscultation: clear to auscultation bilaterally Cardio Rate: regular rate Rhythm: regular rhythm Heart sounds: S1 normal heart sound present, S2 normal heart sound present, no gallops, no murmurs and no rubs Bruits: no abdominal aortic bruits and no carotid bruits GI Palpation (GI): No Abdominal aortic bruit present, Soft to palpation, nontender, No hepatosplenomegaly present and No Rebound tenderness present Auscultation: normal bowel sounds General: Yes no CVA tenderness Back/Spine/Pelvis Back: no CVA tenderness Cervical Spine: cervical ROM normal and No Cervical spine tenderness Thoracic/Lumbar Spine: thoraco-lumbar ROM normal, No pain with thoraco-lumbar ROM, No thoracic spinal tenderness and No lumbar spinal tenderness Skin General: warm and dry. Normal skin color. Normal skin turgor Lesions: no lesions Rashes: no rashes Trauma: no lacerations or abrasions Wounds: no wounds Nails: normal Neuro General: patient oriented x3, gait normal and CN's II-XI intact bilaterally Cranial nerves: Yes Equal, round and reactive pupils present Cognition (Neuro): normal cognition Gait exam (Neuro): Normal gait present Motor exam (neuro): 5/5 motor strength present throughout Sensory Exam: No Sensory deficit (Neuro) Deep tendon reflexes (DTR's): Right patellar reflex intensity grade: 2+ and Left patellar reflex intensity grade: 2+ Extrem General: Yes normal to inspection, No edema and No calf tenderness Psych Appearance: grossly normal Affect: normal affect Attitude: cooperative Thought process: Normal thought process present Results AMB Hemoglobin A1c AMB Hemoglobin A1c Cancelled % Last Edit by Vicky Frost CMA on 10/21/23 10:57 AMB Hemoglobin A1c previously reported as 5.5 Vicky Frost 10/21/23 10:57 CANCELLED too early Results Reviewed Results Reviewed: Laboratory Last Values Hgb A1c (Clinic) Cancelled 10/21/23 10:15 Assessment and Plan Assessment & Plan (1) Normal physical exam: Code(s): Z00.00 - Encounter for general adult medical examination without abnormal findings Plan: No significant physical restrictions or limitations noted Advised to continue current treatment regimen Healthy diet and routine exercise encouraged Follow-up in 3 weeks for diabetes Return sooner with symptoms or concerns Follow-up with specialist as planned Advised to get her medical record from the specialists she sees in [place] sent to us Verbalized understanding and agreed with treatment plan Coding Level of Care Code Est Pt Prev Care 40-64y(94179) Diagnoses Normal physical exam Z00.00 Additional Codes FREDDY-7 Assessment Billing - FREDDY-7 Assessment Tool: FREDDY-7 Assessment 94605 ([id number])
[2023-10-21 09:37] VITALS: BP 108/64; PULSE 105; RESP 13; TEMP 36.1; O2SAT 96; BMI 24.1
== END 2023-10-21 10:57 | disposition home or self-care (01) ==
PROVIDERS: PCP Nurse Practitioner Family; Visit Provider Nurse Practitioner Family
DX: Z00.00 Encounter for general adult medical examination without abnormal findings (principal)
CPT/HCPCS: 99396